=== PATIENT | female | born 1965 | race Caucasian/White ===

== ENCOUNTER 2019-02-22 22:05 | Emergency (ER) | payer MEDICARE ==
[~2019-02-22] VITALS: Ht 157.5 cm; Wt 81.8 kg
[2019-02-22] MEDS ORDERED: METO25XL PO (22:55)
[2019-02-22] MEDS ORDERED: METO-558 PO (22:55)
[2019-02-22] MEDS ORDERED: QUET100T PO (22:55)
[2019-02-22] MEDS ORDERED: CETI10TA59 PO (22:55)
[2019-02-22] MEDS ORDERED: TOPI100T37 PO (22:55)
[2019-02-22] MEDS ORDERED: OMEP20 PO (22:55)
[2019-02-22] MEDS ORDERED: TRAZ-252 PO (22:55)
[2019-02-22] MEDS ORDERED: METF-960 PO (22:55)
[2019-02-22] MEDS ORDERED: BUSP15 PO (22:55)
[2019-02-22] MEDS ORDERED: MAG HYDROX/AL HYDROX/SIMETH 30 ML SUSP UDCUP PO ONE (23:45)
[2019-02-22] MEDS ORDERED: FAMOTIDINE 20 MG TABLET PO ONE (23:45)
[2019-02-23 01:13] VITALS: BP 117/87
== END 2019-02-23 01:19 | disposition home or self-care (01) ==
LOC: EMS 22:07
DX: J02.9 Acute pharyngitis, unspecified (principal); G40.909 Epilepsy, unspecified, not intractable, without status epilepticus; F41.9 Anxiety disorder, unspecified; F17.290 Nicotine dependence, other tobacco product, uncomplicated; Z79.899 Other long term (current) drug therapy; Z91.041 Radiographic dye allergy status; Z88.5 Allergy status to narcotic agent
CPT/HCPCS: 87430; 99406

== ENCOUNTER 2019-04-04 04:18 | Emergency (ER) | payer MEDICARE, MEDICAID ==
[~2019-04-04] VITALS: Ht 157.5 cm; Wt 8.2 kg
[~2019-04-04 04:18] MED LIST: BUSP15 PO; CETI10TA59 PO; METF-960 PO; METO-558 PO; METO25XL PO; OMEP20 PO; QUET100T PO; TOPI100T37 PO; TRAZ-252 PO
[2019-04-04 04:39] LABS: GLUCOSE,POINT OF CARE 134 MG/DL (70-110)
[2019-04-04] MEDS ORDERED: DiphenhydrAMINE HCL 50 MG/ML VIAL IM ONE (06:15)
[2019-04-04] MEDS ORDERED: PredniSONE 20 MG TABLET PO ONE (06:15)
[2019-04-04 06:49] VITALS: BP 142/90
== END 2019-04-04 07:45 | disposition left against medical advice (07) ==
LOC: EMS 04:19
DX: R21 Rash and other nonspecific skin eruption (principal); R00.0 Tachycardia, unspecified; F41.9 Anxiety disorder, unspecified; F17.200 Nicotine dependence, unspecified, uncomplicated; Z90.710 Acquired absence of both cervix and uterus; Z88.8 Allergy status to other drugs, medicaments and biological substances; Z88.5 Allergy status to narcotic agent; Z79.84 Long term (current) use of oral hypoglycemic drugs
CPT/HCPCS: 82962; 93005; 96372; 99283; J1200; J7512

== ENCOUNTER 2020-12-30 19:02 | Emergency (ER) | payer MEDICARE, OTHER ==
[~2020-12-30] VITALS: Ht 157.5 cm; Wt 97.3 kg
[~2020-12-30 19:02] MED LIST changes: +ALLO100T2 PO; +ASCO500 PO; +ATOR40TA28 PO; +BUSP10TA23 PO; -BUSP15 PO; +CETI-450 PO; -CETI10TA59 PO; +FERR-82 PO; +LEVO-72 PO; -METF-960 PO; -METO-558 PO; -QUET100T PO; +SERT-162 PO; -TOPI100T37 PO; -TRAZ-252 PO; +TRAZ150T80 PO
[2020-12-30] MEDS ORDERED: LEVE500T20 PO (19:10)
[2020-12-30] MEDS ORDERED: ACETAMINOPHEN 1000 MG/ISO-OSM 100 ML IV ONE (20:00)
[2020-12-30] MEDS ORDERED: ONDANSETRON HCL 4 MG/2 ML VIAL IVP ONE (20:00)
[2020-12-30] MEDS ORDERED: SODIUM CHLORIDE 0.9% 1,000 ML IV ONE (20:00)
[2020-12-30 20:35] LABS: BASOPHILS % (AUTO) 0.2 % (0.0-2.0); EOSINOPHILS % (AUTO) 1.2 % (1.0-6.0); HEMATOCRIT 39.9 % (36-46); HEMOGLOBIN 13.4 g/dL (12.0-16.0); LYMPHOCYTES # (AUTO) 2.6 K/uL (1.0-4.8); LYMPHOCYTES % (AUTO) 29.3 % (22.0-44.0); MEAN CORPUSCULAR HEMOGLOBIN 29.6 pg (26.0-34.0); MEAN CORPUSCULAR HGB CONC 33.6 G/dL (31.0-37.0); MEAN CORPUSCULAR VOLUME 88 fL (80-100); MONOCYTES # (AUTO) 0.6 K/uL (0.1-1.0); MONOCYTES % (AUTO) 7.1 % (2.0-9.0); NEUTROPHILS # (AUTO) 5.6 K/uL (1.8-7.7); NEUTROPHILS % (AUTO) 62.2 % (40.0-70.0); PLATELET COUNT (AUTO) 281 K/uL (150-450); RED BLOOD CELL COUNT(AUTO) 4.53 MIL/uL (4.00-5.20); RED CELL DISTRIBUTION WIDTH 13.4 % (11.5-14.5)
[2020-12-30] MEDS ORDERED: CefTRIAXone 1 GM/DEXTROSE 50 ML IV ONE (20:45)
[2020-12-30 20:55] LABS: ANION GAP 7 mmol/L (8-16); CALCIUM, TOTAL 8.3 mg/dL (8.8-10.5); CARBON DIOXIDE 30 mmol/L (22-29); CHLORIDE 104 mmol/L (98-107); CREATININE 0.68 mg/dL (0.60-1.30); GLOMERULAR FILTR. RATE CALC > 60 mL/min (>60); GLUCOSE,RANDOM 88 mg/dL (70-110); POTASSIUM 3.5 mmol/L (3.5-5.1); SODIUM SERUM 141 mmol/L (136-145); UREA NITROGEN, BLOOD 15 mg/dL (7-18)
[2020-12-30 20:57] LABS: ALANINE AMINOTRANSFERASE 28 U/L (12-78); ALBUMIN 3.5 g/dL (3.4-5.0); ALKALINE PHOSPHATASE 121 U/L (46-116); ASPARTATE AMINOTRANSFERASE 18 U/L (15-37); BILIRUBIN,TOTAL 0.2 mg/dL (0.1-1.0); LIPASE 126 U/L (73-393); TOTAL PROTEIN, SERUM 7.6 g/dL (6.4-8.2)
[2020-12-30 20:59] LABS: APPEARANCE,URINE CLOUDY (CLEAR); BILIRUBIN,URINE NEGATIVE (NEGATIVE); GLUCOSE, URINE (UA) NEGATIVE (NEGATIVE); KETONES,URINE TRACE mg/dL (NEGATIVE); LEUKOCYTE ESTERASE ,URINE LARGE (NEGATIVE); NITRATE,URINE POSITIVE (NEGATIVE); OCCULT BLOOD,URINE TRACE (NEGATIVE); PROTEIN,URINE NEGATIVE (NEGATIVE)
[2020-12-30 21:02] LABS: BACTERIA,URINE Many /HPF (None Seen); SQUAMOUS EPITHELIAL CELL,UR Few /LPF (None Seen); WBC,URINE 26-50 /HPF (0-5); YEAST,URINE None Seen /HPF (None Seen)
[2020-12-30 21:03] LABS: AMORPHOUS SEDIMENT,UR None Seen /LPF (None Seen); CALCIUM OXALATE CRYSTALS,UR None Seen /LPF (None Seen); CALCIUM PHOSPHATE CRYSTALS,UR None Seen /LPF (None Seen); COARSE GRANULAR CASTS,URINE None Seen /LPF (None Seen); FINE GRANULAR CASTS,URINE None Seen /LPF (None Seen); HYALINE CASTS, URINE None Seen /LPF (None Seen); OTHER CASTS, URINE None Seen /LPF (None Seen); OTHER CRYSTALS,URINE None Seen /LPF (None Seen); STARCH,URINE None Seen /LPF (None Seen); TRIPLE PHOSPHATE CRYSTAL,UR None Seen /LPF (None Seen); URIC ACID CRYSTALS,URINE None Seen /LPF (None Seen)
[2020-12-30 22:09] VITALS: BP 133/85
== END 2020-12-30 22:43 | disposition home or self-care (01) ==
LOC: EMS 19:04
DX: N12 Tubulo-interstitial nephritis, not specified as acute or chronic (principal); F41.9 Anxiety disorder, unspecified; F31.9 Bipolar disorder, unspecified; J44.9 Chronic obstructive pulmonary disease, unspecified; I10 Essential (primary) hypertension; F17.200 Nicotine dependence, unspecified, uncomplicated; Z88.8 Allergy status to other drugs, medicaments and biological substances; Z88.6 Allergy status to analgesic agent; Z90.710 Acquired absence of both cervix and uterus
CPT/HCPCS: 36415; 80053; 81001; 83690; 85025; 87077; 87086; 87186; 96361; 96365; 96375; 99284; J0131; J0696; J2405; J7030; 96367

== ENCOUNTER 2021-02-24 13:40 | Inpatient (IN) | payer MEDICARE, OTHER ==
[~2021-02-24] VITALS: Ht 157.5 cm; Wt 99.5 kg
[~2021-02-24 13:40] MED LIST changes: -ALLO100T2 PO; -ATOR40TA28 PO; -CETI-450 PO; +LEVE750T4 PO; -LEVO-72 PO
[2021-02-24] MEDS ORDERED: HYDROCODONE/ACETAMINOPHEN 5-325 MG TABLET PO ONE (15:00)
[2021-02-24 15:33] LABS: APPEARANCE,URINE CLEAR (CLEAR); BILIRUBIN,URINE NEGATIVE (NEGATIVE); GLUCOSE, URINE (UA) NEGATIVE (NEGATIVE); KETONES,URINE NEGATIVE (NEGATIVE); LEUKOCYTE ESTERASE ,URINE NEGATIVE (NEGATIVE); NITRATE,URINE NEGATIVE (NEGATIVE); OCCULT BLOOD,URINE NEGATIVE (NEGATIVE); PROTEIN,URINE NEGATIVE (NEGATIVE); UROBILINOGEN,URINE 0.2 mg/dL (<=1.0)
[2021-02-24 15:40] LABS: BASOPHILS % (AUTO) 0.9 % (0.0-2.0); HEMATOCRIT 38.8 % (36-46); HEMOGLOBIN 13.1 g/dL (12.0-16.0); LYMPHOCYTES # (AUTO) 2.3 K/uL (1.0-4.8); LYMPHOCYTES % (AUTO) 20.3 % (22.0-44.0); MEAN CORPUSCULAR HEMOGLOBIN 29.4 pg (26.0-34.0); MEAN CORPUSCULAR HGB CONC 33.7 G/dL (31.0-37.0); MEAN CORPUSCULAR VOLUME 87 fL (80-100); MONOCYTES # (AUTO) 0.7 K/uL (0.1-1.0); MONOCYTES % (AUTO) 5.9 % (2.0-9.0); NEUTROPHILS % (AUTO) 71.9 % (40.0-70.0); PLATELET COUNT (AUTO) 293 K/uL (150-450); RED BLOOD CELL COUNT(AUTO) 4.45 MIL/uL (4.00-5.20); RED CELL DISTRIBUTION WIDTH 12.9 % (11.5-14.5)
[2021-02-24 15:52] LABS: ANION GAP 6 mmol/L (8-16); CALCIUM, TOTAL 8.8 mg/dL (8.8-10.5); CARBON DIOXIDE 31 mmol/L (22-29); CHLORIDE 106 mmol/L (98-107); CREATININE 0.76 mg/dL (0.60-1.30); GLOMERULAR FILTR. RATE CALC > 60 mL/min (>60); GLUCOSE,RANDOM 138 mg/dL (70-110); POTASSIUM 3.9 mmol/L (3.5-5.1); SODIUM SERUM 143 mmol/L (136-145); UREA NITROGEN, BLOOD 18 mg/dL (7-18)
[2021-02-24 15:58] LABS: ALANINE AMINOTRANSFERASE 18 U/L (12-78); ALBUMIN 3.1 g/dL (3.4-5.0); ALKALINE PHOSPHATASE 112 U/L (46-116); ASPARTATE AMINOTRANSFERASE 11 U/L (15-37); BILIRUBIN,TOTAL 0.2 mg/dL (0.1-1.0); LIPASE 143 U/L (73-393); TOTAL PROTEIN, SERUM 6.9 g/dL (6.4-8.2)
[2021-02-24 16:05] LABS: BACTERIA,URINE None Seen /HPF (None Seen); RBC,URINE None Seen /HPF (0-2); SQUAMOUS EPITHELIAL CELL,UR Rare /LPF (None Seen)
[2021-02-24 16:06] LABS: WBC,URINE 0-2 /HPF (0-5)
[2021-02-24 16:11] LABS: LACTIC ACID 2.5 mmol/L (0.4-2.0)
[2021-02-24] MEDS ORDERED: SODIUM CHLORIDE 0.9% 1,000 ML IV ONE (17:15)
[2021-02-24] MEDS ORDERED: AMPICILLIN SODIUM/SULBACTAM NA 1.5 GM/VIAL IM ONE (17:30)
[2021-02-24] MEDS ORDERED: AMPICILLIN SODIUM/SULBACTAM NA 1.5 GM/VIAL IV ONE (17:45)
[2021-02-24] MEDS ORDERED: AMPICILLIN SODIUM/SULBACTAM NA 3 GM in SODIUM CHLORIDE 0.9% 100 ML IV ONE (17:45)
[2021-02-24 19:25] LABS: COVID AG,FIA SOURCE NASOPHARYNGEAL
[2021-02-24] MEDS ORDERED: ONDANSETRON HCL 4 MG/2 ML VIAL IVP PRN (19:30)
[2021-02-24] MEDS ORDERED: ACETAMINOPHEN 325 MG TABLET PO PRN (19:30)
[2021-02-24] MEDS: RINGERS SOLUTION,LACTATED 1,000 ML IV SCH (20:40)
[2021-02-24] MEDS ORDERED: MORPHINE SULFATE 2 MG/ML SYRINGE IVP PRN (21:45)
[2021-02-24 22:08] VITALS: BP 122/77
[2021-02-24] MEDS: HEPARIN SODIUM,PORCINE 5,000 UNITS/ML VIAL SQ SCH (23:45)
[2021-02-25] MEDS: RINGERS SOLUTION,LACTATED 1,000 ML IV SCH (03:35)
[2021-02-25] MEDS ORDERED: AMPICILLIN SODIUM/SULBACTAM NA 1.5 GM in SODIUM CHLORIDE 0.9% 50 ML IV SCH (04:00)
[2021-02-25 04:45] VITALS: BP 134/67
[2021-02-25] MEDS ORDERED: MEPERIDINE-PF 25 MG/ML VIAL IVP PRN (06:45)
[2021-02-25] MEDS ORDERED: HYDROmorphone 2 MG/ML VIAL IVP PRN (06:45)
[2021-02-25] MEDS ORDERED: FentaNYL CITRATE PF 100 MCG/2 ML VIAL IVP PRN (06:45)
[2021-02-25] MEDS ORDERED: LevETIRAcetam 500 MG in DEXTROSE 5%-WATER 100 ML IV ONE (07:00)
[2021-02-25] MEDS ORDERED: SODIUM CHLORIDE 0.9% 0 ML ONE ×2 (07:01→07:34)
[2021-02-25] MEDS ORDERED: SODIUM CHLORIDE 0.9% 250 ML IV ONE (07:02)
[2021-02-25] MEDS ORDERED: RINGERS SOLUTION,LACTATED 1,000 ML IV ONE (07:17)
[2021-02-25] MEDS ORDERED: BUPIVACAINE 0.25%/EPI 1:200,000/PF 10 ML VIAL ONE (07:33)
[2021-02-25] MEDS ORDERED: HYDROmorphone 2 MG/ML VIAL ONE (09:08)
[2021-02-25 09:12] VITALS: BP 129/64
[2021-02-25] MEDS ORDERED: ACETAMINOPHEN 500 MG TABLET PO PRN (09:15)
[2021-02-25] MEDS ORDERED: FentaNYL CITRATE PF 100 MCG/2 ML VIAL ONE (09:23)
[2021-02-25 11:24] LABS: BASOPHILS % (AUTO) 0.2 % (0.0-2.0); EOSINOPHILS % (AUTO) 0.2 % (1.0-6.0); HEMATOCRIT 36.7 % (36-46); HEMOGLOBIN 12.4 g/dL (12.0-16.0); LYMPHOCYTES # (AUTO) 0.8 K/uL (1.0-4.8); LYMPHOCYTES % (AUTO) 5.8 % (22.0-44.0); MEAN CORPUSCULAR HEMOGLOBIN 29.5 pg (26.0-34.0); MEAN CORPUSCULAR HGB CONC 33.8 G/dL (31.0-37.0); MEAN CORPUSCULAR VOLUME 87 fL (80-100); MONOCYTES # (AUTO) 0.1 K/uL (0.1-1.0); MONOCYTES % (AUTO) 0.9 % (2.0-9.0); NEUTROPHILS # (AUTO) 13.6 K/uL (1.8-7.7); PLATELET COUNT (AUTO) 278 K/uL (150-450); RED CELL DISTRIBUTION WIDTH 12.8 % (11.5-14.5)
[2021-02-25 11:27] LABS: NEUTROPHILS % (AUTO) 92.9 % (40.0-70.0)
[2021-02-25] MEDS: SERTRALINE HCL 100 MG TABLET PO SCH (11:37)
[2021-02-25] MEDS: BusPIRone HCL 10 MG TABLET PO SCH ×3 (11:37→20:03)
[2021-02-25] MEDS: OMEPRAZOLE 20 MG CAPSULE PO SCH (11:38)
[2021-02-25] MEDS: METOPROLOL SUCCINATE 25 MG ER TABLET PO SCH ×2 (11:38→21:00)
[2021-02-25] MEDS: FERROUS SULFATE 325 MG EC TABLET PO SCH (11:38)
[2021-02-25] MEDS: ASCORBIC ACID 500 MG TABLET PO SCH (11:38)
[2021-02-25 11:39] LABS: ANION GAP 7 mmol/L (8-16); CALCIUM, TOTAL 8.6 mg/dL (8.8-10.5); CARBON DIOXIDE 28 mmol/L (22-29); CHLORIDE 107 mmol/L (98-107); CREATININE 0.65 mg/dL (0.60-1.30); GLOMERULAR FILTR. RATE CALC > 60 mL/min (>60); GLUCOSE,RANDOM 148 mg/dL (70-110); POTASSIUM 4.4 mmol/L (3.5-5.1); SODIUM SERUM 142 mmol/L (136-145); UREA NITROGEN, BLOOD 11 mg/dL (7-18)
[2021-02-25] MEDS: HEPARIN SODIUM,PORCINE 5,000 UNITS/ML VIAL SQ SCH ×2 (11:39→16:00)
[2021-02-25 11:43] LABS: ALANINE AMINOTRANSFERASE 37 U/L (12-78); ALKALINE PHOSPHATASE 116 U/L (46-116); ASPARTATE AMINOTRANSFERASE 55 U/L (15-37); BILIRUBIN,TOTAL 0.5 mg/dL (0.1-1.0); HEMOGLOBIN A1C 5.9 % (3.8-5.6); TOTAL PROTEIN, SERUM 6.7 g/dL (6.4-8.2)
[2021-02-25] MEDS ORDERED: 0.9% SODIUM CHLORIDE 10 ML VIAL IVP ONE (12:00)
[2021-02-25] MEDS ORDERED: FentaNYL CITRATE PF 100 MCG/2 ML VIAL IVP ONE (12:00)
[2021-02-25] MEDS ORDERED: ONDANSETRON HCL 4 MG/2 ML VIAL IVP ONE (12:00)
[2021-02-25] MEDS ORDERED: KETOROLAC TROMETHAMINE 60 MG/2 ML VIAL IM ONE (12:00)
[2021-02-25] MEDS ORDERED: METOPROLOL TARTRATE 5 MG/5 ML VIAL IVP ONE (12:00)
[2021-02-25] MEDS ORDERED: MIDAZOLAM HCL 2 MG/2 ML VIAL IVP ONE (12:00)
[2021-02-25] MEDS ORDERED: DEXAMETHASONE SOD PHOS 4 MG/ML VIAL IVP ONE (12:00)
[2021-02-25] MEDS ORDERED: ROCURONIUM BROMIDE 10 MG/ML 5 ML VIAL IVP ONE (12:00)
[2021-02-25] MEDS ORDERED: LIDOCAINE/PF 2% 5 ML VIAL IM ONE (12:00)
[2021-02-25] MEDS ORDERED: PROPOFOL 1% 20 ML VIAL IVP ONE (12:00)
[2021-02-25] MEDS: OxyCODONE HCL/ACETAMINOPHEN 5-325 MG TABLET PO PRN ×2 (12:09→19:57)
[2021-02-25] MEDS: OXYGEN THERAPY IH SCH ×2 (12:26→20:00)
[2021-02-25 16:00] VITALS: BP 109/67
[2021-02-25 19:50] VITALS: BP 104/58
[2021-02-25] MEDS: LevETIRAcetam 250 MG TABLET PO SCH (20:02)
[2021-02-25] MEDS ORDERED: TraZODone HCL 150 MG TABLET PO SCH (21:00)
[2021-02-26] MEDS: HEPARIN SODIUM,PORCINE 5,000 UNITS/ML VIAL SQ SCH ×2 (00:25→08:18)
[2021-02-26 00:30] VITALS: BP 92/57
[2021-02-26] MEDS: OxyCODONE HCL/ACETAMINOPHEN 5-325 MG TABLET PO PRN ×3 (04:23→13:34)
[2021-02-26 04:39] VITALS: BP 113/64
[2021-02-26] MEDS: OXYGEN THERAPY IH SCH (08:00)
[2021-02-26] MEDS: OMEPRAZOLE 20 MG CAPSULE PO SCH (08:18)
[2021-02-26] MEDS: FERROUS SULFATE 325 MG EC TABLET PO SCH (08:18)
[2021-02-26] MEDS: BusPIRone HCL 10 MG TABLET PO SCH (08:19)
[2021-02-26] MEDS: SERTRALINE HCL 100 MG TABLET PO SCH (08:19)
[2021-02-26] MEDS: ASCORBIC ACID 500 MG TABLET PO SCH (08:20)
[2021-02-26] MEDS: LevETIRAcetam 250 MG TABLET PO SCH (08:20)
[2021-02-26] MEDS: METOPROLOL SUCCINATE 25 MG ER TABLET PO SCH (09:00)
[2021-02-26 09:10] VITALS: BP 114/70
[2021-02-26 12:26] VITALS: BP 115/48
== END 2021-02-26 15:50 | disposition home or self-care (01) | DRG 418 ==
LOC: EMS 13:40 → 5S 20:26
PROVIDERS: ADMIT Internal Medicine; ATTEND Internal Medicine
PROC: 0FT44ZZ Resection of Gallbladder, Percutaneous Endoscopic Approach (ICD-10-PCS; principal; 2021-02-25 08:00)
DX: K80.12 Calculus of gallbladder with acute and chronic cholecystitis without obstruction (principal); Z68.41 Body mass index [BMI] 40.0-44.9, adult; E66.01 Morbid (severe) obesity due to excess calories; F31.9 Bipolar disorder, unspecified; F41.1 Generalized anxiety disorder; G40.909 Epilepsy, unspecified, not intractable, without status epilepticus; I10 Essential (primary) hypertension; J44.9 Chronic obstructive pulmonary disease, unspecified; E11.65 Type 2 diabetes mellitus with hyperglycemia; F41.9 Anxiety disorder, unspecified; Z80.7 Family history of other malignant neoplasms of lymphoid, hematopoietic and related tissues; Z85.41 Personal history of malignant neoplasm of cervix uteri; Z87.891 Personal history of nicotine dependence; Z90.710 Acquired absence of both cervix and uterus; Z91.041 Radiographic dye allergy status
CPT/HCPCS: 76700; 80053; 81001; 83036; 83605; 83690; 85025; 88304; 99285; J0295; J0690; J0712; J1100; J1170; J1644; J1885; J2250; J2270; J2405; J2704; J3010; J3490; J7030; J7050; J7060; J7120

== ENCOUNTER 2021-03-30 09:36 | Emergency (ER) | payer MEDICARE, OTHER ==
[~2021-03-30] VITALS: Ht 157.5 cm; Wt 95.9 kg
[~2021-03-30 09:36] MED LIST changes: -ASCO500 PO; -FERR-82 PO; +HYDR-4723 PO; -METO25XL PO; -TRAZ150T80 PO
[2021-03-30] MEDS ORDERED: ONDANSETRON HCL 4 MG/2 ML VIAL IVP ONE (10:15)
[2021-03-30] MEDS ORDERED: FAMOTIDINE 10 MG/ML 2 ML VIAL IVP ONE (10:15)
[2021-03-30] MEDS ORDERED: MAG HYDROX/AL HYDROX/SIMETH 30 ML SUSP UDCUP PO ONE (10:15)
[2021-03-30] MEDS ORDERED: KETOROLAC TROMETHAMINE 30 MG/ML VIAL IVP ONE (10:15)
[2021-03-30] MEDS ORDERED: SODIUM CHLORIDE 0.9% 1,000 ML IV ONE (10:15)
[2021-03-30] MEDS ORDERED: IOHEXOL 350 MG/ML 150 ML VIAL ONE (10:48)
[2021-03-30] MEDS ORDERED: SODIUM CHLORIDE 0.9% 100 ML ONE (10:48)
[2021-03-30 10:57] LABS: BASOPHILS % (AUTO) 0.9 % (0.0-2.0); EOSINOPHILS % (AUTO) 0.3 % (1.0-6.0); HEMATOCRIT 40.4 % (36-46); HEMOGLOBIN 13.8 g/dL (12.0-16.0); LYMPHOCYTES # (AUTO) 1.3 K/uL (1.0-4.8); LYMPHOCYTES % (AUTO) 31.3 % (22.0-44.0); MEAN CORPUSCULAR HGB CONC 34.2 G/dL (31.0-37.0); MEAN CORPUSCULAR VOLUME 88 fL (80-100); MONOCYTES # (AUTO) 0.6 K/uL (0.1-1.0); MONOCYTES % (AUTO) 13.2 % (2.0-9.0); NEUTROPHILS # (AUTO) 2.3 K/uL (1.8-7.7); NEUTROPHILS % (AUTO) 54.3 % (40.0-70.0); PLATELET COUNT (AUTO) 232 K/uL (150-450); RED CELL DISTRIBUTION WIDTH 13.2 % (11.5-14.5)
[2021-03-30 10:59] LABS: ANION GAP 10 mmol/L (8-16); CALCIUM, TOTAL 9.2 mg/dL (8.8-10.5); CARBON DIOXIDE 24 mmol/L (22-29); CHLORIDE 104 mmol/L (98-107); CREATININE 0.79 mg/dL (0.60-1.30); GLOMERULAR FILTR. RATE CALC > 60 mL/min (>60); GLUCOSE,RANDOM 93 mg/dL (70-110); POTASSIUM 3.5 mmol/L (3.5-5.1); SODIUM SERUM 138 mmol/L (136-145); UREA NITROGEN, BLOOD 11 mg/dL (7-18)
[2021-03-30 11:02] LABS: COVID AG,FIA SOURCE NASOPHARYNGEAL
[2021-03-30 11:10] LABS: ALANINE AMINOTRANSFERASE 83 U/L (12-78); ALBUMIN 3.4 g/dL (3.4-5.0); ALKALINE PHOSPHATASE 184 U/L (46-116); ASPARTATE AMINOTRANSFERASE 67 U/L (15-37); BILIRUBIN,TOTAL 0.2 mg/dL (0.1-1.0); HCG,QUANTITATIVE 8 mIU/mL (0-6); LIPASE 64 U/L (73-393); TOTAL PROTEIN, SERUM 8.1 g/dL (6.4-8.2)
[2021-03-30 11:11] LABS: LACTIC ACID 2.1 mmol/L (0.4-2.0)
[2021-03-30] MEDS ORDERED: DiphenhydrAMINE HCL 50 MG/ML VIAL IVP ONE (12:15)
[2021-03-30] MEDS ORDERED: HYDROCORTISONE SOD SUCC 100 MG/2 ML VIAL IVP ONE (12:15)
[2021-03-30 16:50] LABS: APPEARANCE,URINE CLEAR (CLEAR); BILIRUBIN,URINE NEGATIVE (NEGATIVE); GLUCOSE, URINE (UA) NEGATIVE (NEGATIVE); KETONES,URINE NEGATIVE (NEGATIVE); LEUKOCYTE ESTERASE ,URINE NEGATIVE (NEGATIVE); NITRATE,URINE NEGATIVE (NEGATIVE); OCCULT BLOOD,URINE NEGATIVE (NEGATIVE); PH,URINE 5.5 (5.0-8.0); PROTEIN,URINE NEGATIVE (NEGATIVE); UROBILINOGEN,URINE 0.2 mg/dL (<=1.0)
[2021-03-30 17:44] VITALS: BP 143/77
== END 2021-03-30 18:27 | disposition home or self-care (01) ==
LOC: EMS 09:40
DX: U07.1 COVID-19 (principal); K52.9 Noninfective gastroenteritis and colitis, unspecified; F32.9 Major depressive disorder, single episode, unspecified; E78.00 Pure hypercholesterolemia, unspecified; I10 Essential (primary) hypertension; Z90.710 Acquired absence of both cervix and uterus
CPT/HCPCS: 36415; 74177; 80053; 81003; 82271; 83605; 83690; 84702; 85025; 87426; 96361; 96374; 96375; 99285; J1200; J1720; J1885; J2405; J3490; J7030; J7050; Q9967

== ENCOUNTER 2021-08-07 19:22 | Emergency (ER) | payer MEDICARE, OTHER ==
[~2021-08-07] VITALS: Ht 175.3 cm; Wt 86.4 kg
[2021-08-07] MEDS ORDERED: SODIUM CHLORIDE 0.9% 500 ML IV ONE (20:00)
[2021-08-07 20:13] LABS: BASOPHILS % (AUTO) 1.5 % (0.0-2.0); EOSINOPHILS % (AUTO) 1.2 % (1.0-6.0); HEMATOCRIT 36.8 % (36-46); HEMOGLOBIN 12.6 g/dL (12.0-16.0); LYMPHOCYTES # (AUTO) 2.4 K/uL (1.0-4.8); LYMPHOCYTES % (AUTO) 23.5 % (22.0-44.0); MEAN CORPUSCULAR HEMOGLOBIN 29.6 pg (26.0-34.0); MEAN CORPUSCULAR HGB CONC 34.1 G/dL (31.0-37.0); MEAN CORPUSCULAR VOLUME 87 fL (80-100); MONOCYTES # (AUTO) 0.8 K/uL (0.1-1.0); MONOCYTES % (AUTO) 7.9 % (2.0-9.0); NEUTROPHILS # (AUTO) 6.8 K/uL (1.8-7.7); NEUTROPHILS % (AUTO) 65.9 % (40.0-70.0); PLATELET COUNT (AUTO) 249 K/uL (150-450); RED BLOOD CELL COUNT(AUTO) 4.25 MIL/uL (4.00-5.20); RED CELL DISTRIBUTION WIDTH 12.7 % (11.5-14.5)
[2021-08-07 20:17] LABS: ANION GAP 7 mmol/L (8-16); CALCIUM, TOTAL 8.6 mg/dL (8.8-10.5); CARBON DIOXIDE 29 mmol/L (22-29); CHLORIDE 105 mmol/L (98-107); CREATININE 0.71 mg/dL (0.60-1.30); GLOMERULAR FILTR. RATE CALC > 60 mL/min (>60); GLUCOSE,RANDOM 104 mg/dL (70-110); POTASSIUM 3.6 mmol/L (3.5-5.1); SODIUM SERUM 141 mmol/L (136-145); UREA NITROGEN, BLOOD 12 mg/dL (7-18)
[2021-08-07 20:22] LABS: ALANINE AMINOTRANSFERASE 24 U/L (12-78); ALKALINE PHOSPHATASE 116 U/L (46-116); ASPARTATE AMINOTRANSFERASE 18 U/L (15-37); BILIRUBIN,TOTAL 0.2 mg/dL (0.1-1.0); TOTAL PROTEIN, SERUM 7.1 g/dL (6.4-8.2)
[2021-08-07] MEDS ORDERED: DiphenhydrAMINE HCL 50 MG/ML VIAL IVP ONE (21:15)
[2021-08-07] MEDS ORDERED: KETOROLAC TROMETHAMINE 30 MG/ML VIAL IVP ONE (21:15)
[2021-08-07 22:36] VITALS: BP 118/62
== END 2021-08-07 22:38 | disposition home or self-care (01) ==
LOC: EMS 19:25
DX: G40.909 Epilepsy, unspecified, not intractable, without status epilepticus (principal); G43.909 Migraine, unspecified, not intractable, without status migrainosus; F32.A Depression, unspecified; E78.00 Pure hypercholesterolemia, unspecified; I10 Essential (primary) hypertension; Z86.69 Personal history of other diseases of the nervous system and sense organs; Z87.898 Personal history of other specified conditions; Z90.49 Acquired absence of other specified parts of digestive tract; Z90.710 Acquired absence of both cervix and uterus; Z90.10 Acquired absence of unspecified breast and nipple; Z98.890 Other specified postprocedural states; Z88.8 Allergy status to other drugs, medicaments and biological substances
CPT/HCPCS: 36415; 70450; 80053; 82962; 85025; 96361; 96374; 96375; 99284; J1200; J1885

== ENCOUNTER 2021-09-14 06:47 | Day surgery (SDC) | payer MEDICARE, OTHER ==
[2021-09-13 10:45] LABS: COVID AG,FIA SOURCE NASOPHARYNGEAL
[2021-09-13 11:23] LABS: EOSINOPHILS % (AUTO) 1.9 % (1.0-6.0); HEMATOCRIT 37.7 % (36-46); HEMOGLOBIN 12.8 g/dL (12.0-16.0); LYMPHOCYTES % (AUTO) 21.4 % (22.0-44.0); MEAN CORPUSCULAR HEMOGLOBIN 29.4 pg (26.0-34.0); MEAN CORPUSCULAR HGB CONC 33.8 G/dL (31.0-37.0); MEAN CORPUSCULAR VOLUME 87 fL (80-100); MONOCYTES # (AUTO) 0.6 K/uL (0.1-1.0); MONOCYTES % (AUTO) 6.2 % (2.0-9.0); NEUTROPHILS # (AUTO) 6.6 K/uL (1.8-7.7); NEUTROPHILS % (AUTO) 69.5 % (40.0-70.0); PLATELET COUNT (AUTO) 265 K/uL (150-450); RED BLOOD CELL COUNT(AUTO) 4.34 MIL/uL (4.00-5.20); RED CELL DISTRIBUTION WIDTH 12.6 % (11.5-14.5)
[2021-09-13 11:33] LABS: PROTHROMBIN TIME 10.7 SEC (9.4-11.6)
[2021-09-13 11:40] LABS: ANION GAP 9 mmol/L (8-16); CALCIUM, TOTAL 8.7 mg/dL (8.8-10.5); CARBON DIOXIDE 28 mmol/L (22-29); CHLORIDE 104 mmol/L (98-107); CREATININE 0.63 mg/dL (0.60-1.30); GLUCOSE,RANDOM 92 mg/dL (70-110); POTASSIUM 4.2 mmol/L (3.5-5.1); SODIUM SERUM 141 mmol/L (136-145); UREA NITROGEN, BLOOD 10 mg/dL (7-18)
[2021-09-13 11:41] LABS: GLOMERULAR FILTR. RATE CALC > 60 mL/min (>60)
[2021-09-13 11:45] LABS: ALANINE AMINOTRANSFERASE 22 U/L (12-78); ALBUMIN 3.1 g/dL (3.4-5.0); ALKALINE PHOSPHATASE 108 U/L (46-116); ASPARTATE AMINOTRANSFERASE 20 U/L (15-37); BILIRUBIN,TOTAL 0.4 mg/dL (0.1-1.0); TOTAL PROTEIN, SERUM 7.3 g/dL (6.4-8.2)
[~2021-09-14] VITALS: Ht 160 cm; Wt 97.7 kg
[~2021-09-14 06:47] MED LIST changes: +ASCO500 PO; +FERR325T27 PO; -HYDR-4723 PO; +METO25 PO; +RINGERS SOLUTION,LACTATED 1,000 ML IV ONE; +TRAZ150T80 PO
[2021-09-14] MEDS ORDERED: LIDOCAINE/PF 2% 5 ML VIAL IM ONE (06:48)
[2021-09-14] MEDS ORDERED: DEXAMETHASONE SOD PHOS 4 MG/ML VIAL IVP ONE (06:48)
[2021-09-14] MEDS ORDERED: PROPOFOL 1% 20 ML VIAL IVP ONE (06:48)
[2021-09-14] MEDS ORDERED: FentaNYL CITRATE PF 100 MCG/2 ML VIAL IVP ONE (06:48)
[2021-09-14] MEDS ORDERED: ONDANSETRON HCL 4 MG/2 ML VIAL IVP ONE (06:48)
[2021-09-14] MEDS ORDERED: MIDAZOLAM HCL 2 MG/2 ML VIAL IVP ONE (06:48)
[2021-09-14] MEDS ORDERED: RINGERS SOLUTION,LACTATED 1,000 ML IV ONE (07:00)
[2021-09-14] MEDS ORDERED: BUPIVACAINE HCL/PF 0.5% 30 ML VIAL ONE (08:01)
[2021-09-14] MEDS ORDERED: CHLORHEXIDINE GLUCONATE 4% 118 ML TOPICAL LIQUID TP ONE (09:56)
== END 2021-09-14 11:30 | disposition home or self-care (01) ==
LOC: SURGERY 06:47
PROVIDERS: ATTEND Surgery
DX: D17.79 Benign lipomatous neoplasm of other sites (principal); G40.909 Epilepsy, unspecified, not intractable, without status epilepticus; F32.9 Major depressive disorder, single episode, unspecified; G89.29 Other chronic pain; Z79.899 Other long term (current) drug therapy; Z98.890 Other specified postprocedural states; Z79.01 Long term (current) use of anticoagulants; Z91.041 Radiographic dye allergy status; I10 Essential (primary) hypertension; D64.9 Anemia, unspecified; E78.00 Pure hypercholesterolemia, unspecified; K21.9 Gastro-esophageal reflux disease without esophagitis; Z90.49 Acquired absence of other specified parts of digestive tract
CPT/HCPCS: 27041; 36415; 80053; 85025; 85610; 85730; 87426; 88304; 93005; C9803; J0690; J1100; J2250; J2405; J2704; J3010; J3490 ×2; J7120

== ENCOUNTER 2021-09-20 10:49 | Inpatient (IN) | payer MEDICARE, OTHER ==
[~2021-09-20] VITALS: Ht 160 cm; Wt 113.0 kg
[~2021-09-20 10:49] MED LIST changes: -RINGERS SOLUTION,LACTATED 1,000 ML IV ONE
[2021-09-20] MEDS ORDERED: SODIUM CHLORIDE 0.9% 2,000 ML IV ONE (11:15)
[2021-09-20 11:35] LABS: COVID AG,FIA SOURCE NASAL SWAB
[2021-09-20 11:37] LABS: BASOPHILS % (AUTO) 0.1 % (0.0-2.0); EOSINOPHILS % (AUTO) 1.1 % (1.0-6.0); HEMOGLOBIN 13.1 g/dL (12.0-16.0); MEAN CORPUSCULAR HEMOGLOBIN 29.4 pg (26.0-34.0); MEAN CORPUSCULAR HGB CONC 33.5 G/dL (31.0-37.0); MEAN CORPUSCULAR VOLUME 88 fL (80-100); MONOCYTES # (AUTO) 0.9 K/uL (0.1-1.0); NEUTROPHILS # (AUTO) 21.6 K/uL (1.8-7.7); PLATELET COUNT (AUTO) 248 K/uL (150-450); RED BLOOD CELL COUNT(AUTO) 4.45 MIL/uL (4.00-5.20)
[2021-09-20 11:38] LABS: NEUTROPHILS % (AUTO) 90.8 % (40.0-70.0)
[2021-09-20 11:45] LABS: ANION GAP 8 mmol/L (8-16); CALCIUM, TOTAL 8.6 mg/dL (8.8-10.5); CARBON DIOXIDE 26 mmol/L (22-29); CHLORIDE 103 mmol/L (98-107); CREATININE 0.81 mg/dL (0.60-1.30); GLUCOSE,RANDOM 153 mg/dL (70-110); POTASSIUM 3.9 mmol/L (3.5-5.1); SODIUM SERUM 137 mmol/L (136-145); UREA NITROGEN, BLOOD 12 mg/dL (7-18)
[2021-09-20 11:46] LABS: GLOMERULAR FILTR. RATE CALC > 60 mL/min (>60)
[2021-09-20 11:53] LABS: ALANINE AMINOTRANSFERASE 21 U/L (12-78); ALBUMIN 3.1 g/dL (3.4-5.0); ALKALINE PHOSPHATASE 117 U/L (46-116); ASPARTATE AMINOTRANSFERASE 20 U/L (15-37); BILIRUBIN,TOTAL 0.5 mg/dL (0.1-1.0); LIPASE 77 U/L (73-393); TOTAL PROTEIN, SERUM 7.4 g/dL (6.4-8.2)
[2021-09-20 11:55] LABS: INFLUENZA TYPE A NEGATIVE FOR TYPE A (NEGATIVE); INFLUENZA TYPE B NEGATIVE FOR TYPE B (NEGATIVE)
[2021-09-20] MEDS ORDERED: PIPERACILLIN/TAZO 3.375 GM/D5W 50 ML IV SCH (12:00)
[2021-09-20 12:07] LABS: LACTIC ACID 2.3 mmol/L (0.4-2.0)
[2021-09-20] MEDS ORDERED: HYDROmorphone 2 MG/ML VIAL IVP ONE (12:15)
[2021-09-20] MEDS ORDERED: BARIUM SULFATE 0.1% SUSPENSION 450 ML BOTTLE PO ONE (12:15)
[2021-09-20] MEDS ORDERED: SODIUM CHLORIDE 0.9% 1,000 ML IV ONE (12:15)
[2021-09-20] MEDS ORDERED: ONDANSETRON HCL 4 MG/2 ML VIAL IVP ONE (12:15)
[2021-09-20] MEDS ORDERED: ACETAMINOPHEN 500 MG TABLET PO ONE (12:15)
[2021-09-20] MEDS ORDERED: SODIUM CHLORIDE 0.9% 100 ML ONE (12:35)
[2021-09-20] MEDS ORDERED: IOHEXOL 350 MG/ML 150 ML VIAL ONE (12:35)
[2021-09-20] MEDS ORDERED: VANCOMYCIN HCL 1.5 GM in DEXTROSE 5%-WATER 250 ML IV ONE (13:00)
[2021-09-20 13:07] LABS: APPEARANCE,URINE CLEAR (CLEAR); BILIRUBIN,URINE NEGATIVE (NEGATIVE); GLUCOSE, URINE (UA) NEGATIVE (NEGATIVE); KETONES,URINE NEGATIVE (NEGATIVE); LEUKOCYTE ESTERASE ,URINE NEGATIVE (NEGATIVE); NITRATE,URINE NEGATIVE (NEGATIVE); OCCULT BLOOD,URINE NEGATIVE (NEGATIVE); PH,URINE 5.5 (5.0-8.0); PROTEIN,URINE NEGATIVE (NEGATIVE); SPECIFIC GRAVITIY, URINE 1.022 (1.003-1.030); UROBILINOGEN,URINE <=1.0 mg/dL (<=1.0)
[2021-09-20 13:11] LABS: BACTERIA,URINE None Seen /HPF (None Seen); RBC,URINE None Seen /HPF (0-2); WBC,URINE None Seen /HPF (0-5)
[2021-09-20] MEDS ORDERED: MethylPREDNISolone SOD SUCC 125 MG/2 ML VIAL IVP ONE (13:15)
[2021-09-20] MEDS ORDERED: DiphenhydrAMINE HCL 50 MG/ML VIAL IVP ONE (13:15)
[2021-09-20 15:23] VITALS: BP 98/50
[2021-09-20] MEDS ORDERED: ATOR40TA28 PO (16:15)
[2021-09-20] MEDS ORDERED: IPRATROPIUM BROMIDE 0.5 MG/2.5 ML NEB SOLUTION NEB PRN (16:30)
[2021-09-20] MEDS ORDERED: ONDANSETRON HCL 4 MG/2 ML VIAL IVP PRN (16:30)
[2021-09-20] MEDS ORDERED: TraZODone HCL 100 MG TABLET PO PRN (16:30)
[2021-09-20] MEDS: OxyCODONE HCL/ACETAMINOPHEN 5-325 MG TABLET PO PRN ×2 (17:13→21:06)
[2021-09-20] MEDS: SODIUM CHLORIDE 0.9% 1,000 ML IV SCH (17:15)
[2021-09-20] MEDS: PIPERACILLIN/TAZO 3.375 GM/D5W 50 ML IV SCH (18:21)
[2021-09-20 20:25] VITALS: BP 99/60
[2021-09-20] MEDS: DOCUSATE SODIUM 100 MG CAPSULE PO SCH (21:00)
[2021-09-20] MEDS: BusPIRone HCL 10 MG TABLET PO SCH (21:03)
[2021-09-20] MEDS: VANCOMYCIN HCL 1 GM in DEXTROSE 5%-WATER 250 ML IV SCH (22:46)
[2021-09-21] MEDS: SODIUM CHLORIDE 0.9% 1,000 ML IV SCH ×2 (00:30→08:29)
[2021-09-21] MEDS: PIPERACILLIN/TAZO 3.375 GM/D5W 50 ML IV SCH ×5 (00:57→23:21)
[2021-09-21] MEDS: HEPARIN SODIUM,PORCINE 5,000 UNITS/ML VIAL SQ SCH ×4 (00:57→23:26)
[2021-09-21] MEDS: OxyCODONE HCL/ACETAMINOPHEN 5-325 MG TABLET PO PRN ×4 (03:57→20:08)
[2021-09-21 04:30] VITALS: BP 107/74
[2021-09-21 05:34] LABS: BASOPHILS % (AUTO) 0.2 % (0.0-2.0); EOSINOPHILS % (AUTO) 0 % (1.0-6.0); HEMATOCRIT 34.2 % (36-46); HEMOGLOBIN 11.4 g/dL (12.0-16.0); LYMPHOCYTES # (AUTO) 1.3 K/uL (1.0-4.8); LYMPHOCYTES % (AUTO) 5.5 % (22.0-44.0); MEAN CORPUSCULAR HGB CONC 33.4 G/dL (31.0-37.0); MEAN CORPUSCULAR VOLUME 87 fL (80-100); MONOCYTES # (AUTO) 0.6 K/uL (0.1-1.0); MONOCYTES % (AUTO) 2.3 % (2.0-9.0); NEUTROPHILS # (AUTO) 22.1 K/uL (1.8-7.7); PLATELET COUNT (AUTO) 249 K/uL (150-450); RED BLOOD CELL COUNT(AUTO) 3.94 MIL/uL (4.00-5.20); RED CELL DISTRIBUTION WIDTH 13.2 % (11.5-14.5)
[2021-09-21 05:44] LABS: ANION GAP 9 mmol/L (8-16); CARBON DIOXIDE 26 mmol/L (22-29); CHLORIDE 105 mmol/L (98-107); CREATININE 0.65 mg/dL (0.60-1.30); GLUCOSE,RANDOM 140 mg/dL (70-110); POTASSIUM 3.9 mmol/L (3.5-5.1); SODIUM SERUM 140 mmol/L (136-145); UREA NITROGEN, BLOOD 9 mg/dL (7-18)
[2021-09-21 05:45] LABS: GLOMERULAR FILTR. RATE CALC > 60 mL/min (>60)
[2021-09-21 08:11] VITALS: BP 103/59
[2021-09-21] MEDS: BusPIRone HCL 10 MG TABLET PO SCH ×3 (08:24→20:05)
[2021-09-21] MEDS: SERTRALINE HCL 100 MG TABLET PO SCH (08:24)
[2021-09-21] MEDS: DOCUSATE SODIUM 100 MG CAPSULE PO SCH ×2 (08:24→20:06)
[2021-09-21] MEDS: FAMOTIDINE 20 MG TABLET PO SCH (08:24)
[2021-09-21] MEDS: VANCOMYCIN HCL 1 GM in DEXTROSE 5%-WATER 250 ML IV SCH ×2 (09:12→15:38)
[2021-09-21] MEDS: LevETIRAcetam 250 MG TABLET PO SCH ×2 (11:16→20:05)
[2021-09-21 16:12] VITALS: BP 115/72
[2021-09-21 21:18] VITALS: BP 117/75
[2021-09-21] MEDS ORDERED: SODIUM CHLORIDE 0.9% 500 ML IV ONE (23:15)
[2021-09-22] MEDS: VANCOMYCIN HCL 1 GM in DEXTROSE 5%-WATER 250 ML IV SCH ×3 (00:25→15:59)
[2021-09-22] MEDS: OxyCODONE HCL/ACETAMINOPHEN 5-325 MG TABLET PO PRN ×3 (02:40→15:58)
[2021-09-22 04:07] VITALS: BP 125/76
[2021-09-22] MEDS: PIPERACILLIN/TAZO 3.375 GM/D5W 50 ML IV SCH ×4 (05:31→23:31)
[2021-09-22 06:23] LABS: BASOPHILS % (AUTO) 0.4 % (0.0-2.0); EOSINOPHILS % (AUTO) 2.8 % (1.0-6.0); HEMATOCRIT 31.2 % (36-46); HEMOGLOBIN 10.4 g/dL (12.0-16.0); LYMPHOCYTES % (AUTO) 24.5 % (22.0-44.0); MEAN CORPUSCULAR HEMOGLOBIN 29.2 pg (26.0-34.0); MEAN CORPUSCULAR HGB CONC 33.3 G/dL (31.0-37.0); MEAN CORPUSCULAR VOLUME 88 fL (80-100); MONOCYTES # (AUTO) 1.1 K/uL (0.1-1.0); MONOCYTES % (AUTO) 6.6 % (2.0-9.0); NEUTROPHILS # (AUTO) 10.6 K/uL (1.8-7.7); NEUTROPHILS % (AUTO) 65.7 % (40.0-70.0); PLATELET COUNT (AUTO) 227 K/uL (150-450); RED BLOOD CELL COUNT(AUTO) 3.55 MIL/uL (4.00-5.20); RED CELL DISTRIBUTION WIDTH 13.2 % (11.5-14.5)
[2021-09-22 06:39] LABS: ANION GAP 8 mmol/L (8-16); CARBON DIOXIDE 28 mmol/L (22-29); CHLORIDE 106 mmol/L (98-107); CREATININE 0.65 mg/dL (0.60-1.30); GLUCOSE,RANDOM 104 mg/dL (70-110); POTASSIUM 3.2 mmol/L (3.5-5.1); SODIUM SERUM 142 mmol/L (136-145); UREA NITROGEN, BLOOD 11 mg/dL (7-18); VANCOMYCIN,RANDOM 20.9 mcg/mL (25.0-50.0)
[2021-09-22 06:56] LABS: GLOMERULAR FILTR. RATE CALC > 60 mL/min (>60)
[2021-09-22] MEDS: HEPARIN SODIUM,PORCINE 5,000 UNITS/ML VIAL SQ SCH (08:23)
[2021-09-22] MEDS: BusPIRone HCL 10 MG TABLET PO SCH ×3 (08:23→20:41)
[2021-09-22] MEDS: DOCUSATE SODIUM 100 MG CAPSULE PO SCH ×2 (08:24→20:43)
[2021-09-22] MEDS: SERTRALINE HCL 100 MG TABLET PO SCH (08:24)
[2021-09-22] MEDS: FAMOTIDINE 20 MG TABLET PO SCH (08:24)
[2021-09-22] MEDS: LevETIRAcetam 250 MG TABLET PO SCH ×2 (08:27→20:41)
[2021-09-22 08:33] VITALS: BP 132/94
[2021-09-22] MEDS ORDERED: BISACODYL 10 MG RECTAL RECTAL SUPPOSITORY PR PRN (11:00)
[2021-09-22] MEDS ORDERED: MAGNESIUM HYDROXIDE SUSPENSION 30 ML UDCUP PO PRN (11:00)
[2021-09-22] MEDS: MORPHINE SULFATE 2 MG/ML SYRINGE IVP PRN ×2 (14:43→22:17)
[2021-09-22 16:59] VITALS: BP 123/82
[2021-09-22 19:48] VITALS: BP 139/65
[2021-09-22] MEDS: KETOROLAC TROMETHAMINE 15 MG/ML VIAL IVP PRN (20:40)
[2021-09-22] MEDS: ZOLPIDEM TARTRATE 5 MG TABLET PO PRN (22:23)
[2021-09-23] MEDS: VANCOMYCIN HCL 1 GM in DEXTROSE 5%-WATER 250 ML IV SCH ×3 (00:20→15:40)
[2021-09-23 03:55] VITALS: BP 146/51
[2021-09-23] MEDS ORDERED: POTASSIUM CHLORIDE 20 MEQ ER TABLET PO ONE (04:15)
[2021-09-23] MEDS: ACETAMINOPHEN 325 MG TABLET PO PRN ×2 (04:15→20:46)
[2021-09-23] MEDS: PIPERACILLIN/TAZO 3.375 GM/D5W 50 ML IV SCH ×4 (05:26→23:58)
[2021-09-23 06:32] LABS: BASOPHILS % (AUTO) 0.7 % (0.0-2.0); EOSINOPHILS % (AUTO) 3.7 % (1.0-6.0); HEMATOCRIT 34.3 % (36-46); HEMOGLOBIN 11.6 g/dL (12.0-16.0); LYMPHOCYTES # (AUTO) 2.3 K/uL (1.0-4.8); LYMPHOCYTES % (AUTO) 18.3 % (22.0-44.0); MEAN CORPUSCULAR HEMOGLOBIN 29.5 pg (26.0-34.0); MEAN CORPUSCULAR VOLUME 87 fL (80-100); MONOCYTES # (AUTO) 0.9 K/uL (0.1-1.0); MONOCYTES % (AUTO) 6.9 % (2.0-9.0); NEUTROPHILS # (AUTO) 8.9 K/uL (1.8-7.7); NEUTROPHILS % (AUTO) 70.4 % (40.0-70.0); PLATELET COUNT (AUTO) 279 K/uL (150-450); RED BLOOD CELL COUNT(AUTO) 3.95 MIL/uL (4.00-5.20)
[2021-09-23 06:46] LABS: ANION GAP 7 mmol/L (8-16); CALCIUM, TOTAL 8.7 mg/dL (8.8-10.5); CARBON DIOXIDE 29 mmol/L (22-29); CHLORIDE 102 mmol/L (98-107); CREATININE 0.77 mg/dL (0.60-1.30); GLUCOSE,RANDOM 112 mg/dL (70-110); POTASSIUM 3.8 mmol/L (3.5-5.1); SODIUM SERUM 138 mmol/L (136-145); UREA NITROGEN, BLOOD 6 mg/dL (7-18)
[2021-09-23 06:48] LABS: GLOMERULAR FILTR. RATE CALC > 60 mL/min (>60)
[2021-09-23 07:55] VITALS: BP 140/58
[2021-09-23] MEDS: SERTRALINE HCL 100 MG TABLET PO SCH (08:26)
[2021-09-23] MEDS: BusPIRone HCL 10 MG TABLET PO SCH ×3 (08:28→20:46)
[2021-09-23] MEDS: DOCUSATE SODIUM 100 MG CAPSULE PO SCH ×2 (08:28→21:00)
[2021-09-23] MEDS: LevETIRAcetam 250 MG TABLET PO SCH ×2 (08:28→20:46)
[2021-09-23] MEDS: FAMOTIDINE 20 MG TABLET PO SCH (08:28)
[2021-09-23] MEDS: MORPHINE SULFATE 2 MG/ML SYRINGE IVP PRN ×3 (08:32→21:15)
[2021-09-23] MEDS: KETOROLAC TROMETHAMINE 15 MG/ML VIAL IVP PRN (10:35)
[2021-09-23 14:19] LABS: COVID AG,FIA SOURCE NASOPHARYNGEAL
[2021-09-23] MEDS: AZITHROMYCIN 500 MG TABLET PO SCH (14:28)
[2021-09-23 16:51] LABS: C-REACTIVE PROTEIN QUANT 2.9 mg/dL (0.00-0.30)
[2021-09-23 20:05] VITALS: BP 127/65
[2021-09-23] MEDS: ZOLPIDEM TARTRATE 5 MG TABLET PO PRN (21:15)
[2021-09-24] MEDS: VANCOMYCIN HCL 1 GM in DEXTROSE 5%-WATER 250 ML IV SCH ×2 (00:41→08:34)
[2021-09-24 05:01] VITALS: BP 125/68
[2021-09-24] MEDS: PIPERACILLIN/TAZO 3.375 GM/D5W 50 ML IV SCH ×2 (05:48→13:01)
[2021-09-24] MEDS: MORPHINE SULFATE 2 MG/ML SYRINGE IVP PRN ×3 (06:00→20:31)
[2021-09-24 06:10] LABS: ANION GAP 8 mmol/L (8-16); CARBON DIOXIDE 31 mmol/L (22-29); CHLORIDE 103 mmol/L (98-107); CREATININE 0.66 mg/dL (0.60-1.30); GLUCOSE,RANDOM 111 mg/dL (70-110); POTASSIUM 3.9 mmol/L (3.5-5.1); SODIUM SERUM 142 mmol/L (136-145); UREA NITROGEN, BLOOD 7 mg/dL (7-18); VANCOMYCIN,RANDOM 30.1 mcg/mL (25.0-50.0)
[2021-09-24 06:11] LABS: GLOMERULAR FILTR. RATE CALC > 60 mL/min (>60)
[2021-09-24 07:45] VITALS: BP 123/67
[2021-09-24] MEDS: BusPIRone HCL 10 MG TABLET PO SCH ×3 (08:36→20:30)
[2021-09-24] MEDS: FAMOTIDINE 20 MG TABLET PO SCH (08:37)
[2021-09-24] MEDS: AZITHROMYCIN 500 MG TABLET PO SCH (08:37)
[2021-09-24] MEDS: DOCUSATE SODIUM 100 MG CAPSULE PO SCH ×2 (08:37→20:32)
[2021-09-24] MEDS: LevETIRAcetam 250 MG TABLET PO SCH ×2 (08:37→20:30)
[2021-09-24] MEDS: SERTRALINE HCL 100 MG TABLET PO SCH (08:37)
[2021-09-24] MEDS: KETOROLAC TROMETHAMINE 15 MG/ML VIAL IVP PRN (08:46)
[2021-09-24 15:19] VITALS: BP 109/65
[2021-09-24] MEDS: CefTRIAXone SODIUM 2 GM in DEXTROSE 5%-WATER 50 ML IV SCH (17:06)
[2021-09-24] MEDS: ACETAMINOPHEN 325 MG TABLET PO PRN (17:15)
[2021-09-24] MEDS ORDERED: VANCOMYCIN HCL 1.25 GM in DEXTROSE 5%-WATER 250 ML IV SCH (20:00)
[2021-09-24] MEDS: ZOLPIDEM TARTRATE 5 MG TABLET PO PRN (20:30)
[2021-09-24 20:36] VITALS: BP 111/79
[2021-09-25 05:18] VITALS: BP 118/62
[2021-09-25 05:37] LABS: BASOPHILS % (AUTO) 0.6 % (0.0-2.0); EOSINOPHILS % (AUTO) 2.6 % (1.0-6.0); HEMATOCRIT 36.5 % (36-46); HEMOGLOBIN 12.3 g/dL (12.0-16.0); LYMPHOCYTES # (AUTO) 1.6 K/uL (1.0-4.8); LYMPHOCYTES % (AUTO) 10.2 % (22.0-44.0); MEAN CORPUSCULAR HEMOGLOBIN 29.5 pg (26.0-34.0); MEAN CORPUSCULAR HGB CONC 33.6 G/dL (31.0-37.0); MEAN CORPUSCULAR VOLUME 88 fL (80-100); MONOCYTES # (AUTO) 1.4 K/uL (0.1-1.0); MONOCYTES % (AUTO) 8.7 % (2.0-9.0); NEUTROPHILS # (AUTO) 12.4 K/uL (1.8-7.7); NEUTROPHILS % (AUTO) 77.9 % (40.0-70.0); PLATELET COUNT (AUTO) 284 K/uL (150-450); RED BLOOD CELL COUNT(AUTO) 4.16 MIL/uL (4.00-5.20); RED CELL DISTRIBUTION WIDTH 13.1 % (11.5-14.5)
[2021-09-25 06:14] LABS: ALANINE AMINOTRANSFERASE 23 U/L (12-78); ALBUMIN 2.9 g/dL (3.4-5.0); ALKALINE PHOSPHATASE 104 U/L (46-116); ANION GAP 7 mmol/L (8-16); ASPARTATE AMINOTRANSFERASE 18 U/L (15-37); BILIRUBIN,TOTAL 0.4 mg/dL (0.1-1.0); C-REACTIVE PROTEIN QUANT 5.06 mg/dL (0.00-0.30); CALCIUM, TOTAL 9.1 mg/dL (8.8-10.5); CARBON DIOXIDE 31 mmol/L (22-29); CHLORIDE 104 mmol/L (98-107); GLUCOSE,RANDOM 118 mg/dL (70-110); POTASSIUM 4.4 mmol/L (3.5-5.1); SODIUM SERUM 142 mmol/L (136-145); TOTAL PROTEIN, SERUM 7.1 g/dL (6.4-8.2); UREA NITROGEN, BLOOD 12 mg/dL (7-18)
[2021-09-25 06:27] LABS: GLOMERULAR FILTR. RATE CALC 52 mL/min (>60)
[2021-09-25] MEDS ORDERED: VANCOMYCIN HCL 1 GM in DEXTROSE 5%-WATER 250 ML IV SCH (08:00)
[2021-09-25 08:05] VITALS: BP 121/76
[2021-09-25] MEDS: FAMOTIDINE 20 MG TABLET PO SCH (08:47)
[2021-09-25] MEDS: LevETIRAcetam 250 MG TABLET PO SCH ×2 (08:47→21:17)
[2021-09-25] MEDS: SERTRALINE HCL 100 MG TABLET PO SCH (08:47)
[2021-09-25] MEDS: AZITHROMYCIN 500 MG TABLET PO SCH (08:47)
[2021-09-25] MEDS: DOCUSATE SODIUM 100 MG CAPSULE PO SCH ×2 (08:48→21:00)
[2021-09-25] MEDS: BusPIRone HCL 10 MG TABLET PO SCH ×3 (08:48→21:17)
[2021-09-25] MEDS: MORPHINE SULFATE 2 MG/ML SYRINGE IVP PRN ×3 (08:59→21:17)
[2021-09-25 15:41] VITALS: BP 109/72
[2021-09-25] MEDS: CefTRIAXone SODIUM 2 GM in DEXTROSE 5%-WATER 50 ML IV SCH (17:34)
[2021-09-25 19:56] VITALS: BP 124/77
[2021-09-25] MEDS: ONDANSETRON HCL 4 MG/2 ML VIAL IVP PRN (21:16)
[2021-09-25] MEDS: ZOLPIDEM TARTRATE 5 MG TABLET PO PRN (21:17)
[2021-09-26] MEDS: MORPHINE SULFATE 2 MG/ML SYRINGE IVP PRN ×4 (02:15→22:43)
[2021-09-26 05:55] VITALS: BP 112/60
[2021-09-26 07:24] LABS: C-REACTIVE PROTEIN QUANT 7.03 mg/dL (0.00-0.30); CALCIUM, TOTAL 9.2 mg/dL (8.8-10.5); CREATININE 1.09 mg/dL (0.60-1.30); POTASSIUM 3.8 mmol/L (3.5-5.1)
[2021-09-26] MEDS ORDERED: SODIUM CHLORIDE 0.9% 0 ML IV ONE (07:32)
[2021-09-26] MEDS: BusPIRone HCL 10 MG TABLET PO SCH ×3 (08:53→20:06)
[2021-09-26] MEDS: AZITHROMYCIN 500 MG TABLET PO SCH (08:54)
[2021-09-26] MEDS: DOCUSATE SODIUM 100 MG CAPSULE PO SCH ×2 (08:54→20:06)
[2021-09-26] MEDS: SERTRALINE HCL 100 MG TABLET PO SCH (08:54)
[2021-09-26] MEDS: FAMOTIDINE 20 MG TABLET PO SCH (08:54)
[2021-09-26] MEDS: LevETIRAcetam 250 MG TABLET PO SCH ×2 (08:54→20:06)
[2021-09-26 15:46] VITALS: BP 120/72
[2021-09-26] MEDS ORDERED: SODIUM CHLORIDE 0.9% 500 ML IV ONE (16:26)
[2021-09-26] MEDS: CefTRIAXone SODIUM 2 GM in DEXTROSE 5%-WATER 50 ML IV SCH (17:14)
[2021-09-26] MEDS: ACETAMINOPHEN 325 MG TABLET PO PRN (18:07)
[2021-09-26] MEDS: MetroNIDAZOLE 500 MG TABLET PO SCH (18:12)
[2021-09-26 20:00] VITALS: BP 122/79
[2021-09-26] MEDS: ZOLPIDEM TARTRATE 5 MG TABLET PO PRN (22:37)
[2021-09-27] MEDS: MetroNIDAZOLE 500 MG TABLET PO SCH ×3 (01:59→16:46)
[2021-09-27] MEDS: MORPHINE SULFATE 2 MG/ML SYRINGE IVP PRN (03:34)
[2021-09-27 03:43] VITALS: BP 121/63
[2021-09-27 06:28] LABS: C-REACTIVE PROTEIN QUANT 8.75 mg/dL (0.00-0.30); CALCIUM, TOTAL 9.2 mg/dL (8.8-10.5); CREATININE 0.97 mg/dL (0.60-1.30); POTASSIUM 4.3 mmol/L (3.5-5.1)
[2021-09-27 07:32] VITALS: BP 110/67
[2021-09-27] MEDS: LevETIRAcetam 250 MG TABLET PO SCH ×2 (08:50→20:50)
[2021-09-27] MEDS: SERTRALINE HCL 100 MG TABLET PO SCH (08:50)
[2021-09-27] MEDS: AZITHROMYCIN 500 MG TABLET PO SCH (08:50)
[2021-09-27] MEDS: BusPIRone HCL 10 MG TABLET PO SCH ×3 (08:50→20:49)
[2021-09-27] MEDS: DOCUSATE SODIUM 100 MG CAPSULE PO SCH ×2 (08:50→20:59)
[2021-09-27] MEDS: FAMOTIDINE 20 MG TABLET PO SCH (08:50)
[2021-09-27] MEDS: ACETAMINOPHEN 325 MG TABLET PO PRN (08:54)
[2021-09-27 10:37] LABS: BASOPHILS % (AUTO) 1.2 % (0.0-2.0); EOSINOPHILS % (AUTO) 1.9 % (1.0-6.0); HEMATOCRIT 36.9 % (36-46); HEMOGLOBIN 12.1 g/dL (12.0-16.0); LYMPHOCYTES # (AUTO) 1.4 K/uL (1.0-4.8); LYMPHOCYTES % (AUTO) 9.7 % (22.0-44.0); MEAN CORPUSCULAR HEMOGLOBIN 29.1 pg (26.0-34.0); MEAN CORPUSCULAR HGB CONC 32.9 G/dL (31.0-37.0); MEAN CORPUSCULAR VOLUME 88 fL (80-100); MONOCYTES # (AUTO) 1.4 K/uL (0.1-1.0); MONOCYTES % (AUTO) 9.4 % (2.0-9.0); NEUTROPHILS # (AUTO) 11.5 K/uL (1.8-7.7); NEUTROPHILS % (AUTO) 77.8 % (40.0-70.0); PLATELET COUNT (AUTO) 301 K/uL (150-450); RED BLOOD CELL COUNT(AUTO) 4.18 MIL/uL (4.00-5.20); RED CELL DISTRIBUTION WIDTH 13.2 % (11.5-14.5)
[2021-09-27 16:00] VITALS: BP 120/79
[2021-09-27] MEDS: CefTRIAXone SODIUM 2 GM in DEXTROSE 5%-WATER 50 ML IV SCH (16:47)
[2021-09-27] MEDS: ONDANSETRON HCL 4 MG/2 ML VIAL IVP PRN (20:51)
[2021-09-27] MEDS: ZOLPIDEM TARTRATE 5 MG TABLET PO PRN (20:51)
[2021-09-27 21:04] VITALS: BP 116/83
[2021-09-28] MEDS: MetroNIDAZOLE 500 MG TABLET PO SCH ×3 (00:28→15:47)
[2021-09-28 06:00] LABS: BASOPHILS % (AUTO) 1.1 % (0.0-2.0); EOSINOPHILS % (AUTO) 2.2 % (1.0-6.0); HEMATOCRIT 37.3 % (36-46); HEMOGLOBIN 12.5 g/dL (12.0-16.0); LYMPHOCYTES # (AUTO) 1.7 K/uL (1.0-4.8); LYMPHOCYTES % (AUTO) 14.6 % (22.0-44.0); MEAN CORPUSCULAR HEMOGLOBIN 29.6 pg (26.0-34.0); MEAN CORPUSCULAR HGB CONC 33.6 G/dL (31.0-37.0); MEAN CORPUSCULAR VOLUME 88 fL (80-100); MONOCYTES # (AUTO) 1.1 K/uL (0.1-1.0); NEUTROPHILS # (AUTO) 8.3 K/uL (1.8-7.7); NEUTROPHILS % (AUTO) 72.1 % (40.0-70.0); PLATELET COUNT (AUTO) 303 K/uL (150-450); RED BLOOD CELL COUNT(AUTO) 4.24 MIL/uL (4.00-5.20); RED CELL DISTRIBUTION WIDTH 13.1 % (11.5-14.5)
[2021-09-28 06:12] VITALS: BP 106/76
[2021-09-28 06:33] LABS: ALBUMIN 3.1 g/dL (3.4-5.0); BILIRUBIN,TOTAL 0.4 mg/dL (0.1-1.0); C-REACTIVE PROTEIN QUANT 6.96 mg/dL (0.00-0.30); CALCIUM, TOTAL 9.3 mg/dL (8.8-10.5); CREATININE 1.01 mg/dL (0.60-1.30); POTASSIUM 3.9 mmol/L (3.5-5.1); TOTAL PROTEIN, SERUM 7.8 g/dL (6.4-8.2)
[2021-09-28 07:49] VITALS: BP 100/60
[2021-09-28 07:53] LABS: ERYTHROCYTE SEDIMENTATION RATE 118 MM/HR (0-20)
[2021-09-28] MEDS: DOCUSATE SODIUM 100 MG CAPSULE PO SCH ×2 (09:00→20:32)
[2021-09-28] MEDS: FAMOTIDINE 20 MG TABLET PO SCH (09:30)
[2021-09-28] MEDS: BusPIRone HCL 10 MG TABLET PO SCH ×3 (09:30→20:13)
[2021-09-28] MEDS: AZITHROMYCIN 500 MG TABLET PO SCH (09:30)
[2021-09-28] MEDS: SERTRALINE HCL 100 MG TABLET PO SCH (09:30)
[2021-09-28] MEDS: LevETIRAcetam 250 MG TABLET PO SCH ×2 (10:23→20:13)
[2021-09-28] MEDS: ACETAMINOPHEN 325 MG TABLET PO PRN (10:28)
[2021-09-28 15:06] LABS: S PNEUMO SOURCE Urine; STREP PNEUMONIAE AG URINE Negative (Negative)
[2021-09-28 15:56] VITALS: BP 109/73
[2021-09-28 16:06] LABS: LEGIONELLA PNEUMO AG URINE Negative (Negative)
[2021-09-28] MEDS: CefTRIAXone SODIUM 2 GM in DEXTROSE 5%-WATER 50 ML IV SCH (18:09)
[2021-09-28] MEDS: ONDANSETRON HCL 4 MG/2 ML VIAL IVP PRN (18:12)
[2021-09-28] MEDS: MAG HYDROX/AL HYDROX/SIMETH ES 30 ML SUSPENSION UDCUP PO PRN (20:15)
[2021-09-28 20:16] VITALS: BP 126/71
[2021-09-28] MEDS: ZOLPIDEM TARTRATE 5 MG TABLET PO PRN (20:19)
[2021-09-29] MEDS: MetroNIDAZOLE 500 MG TABLET PO SCH ×3 (00:28→08:54)
[2021-09-29] MEDS: MAG HYDROX/AL HYDROX/SIMETH ES 30 ML SUSPENSION UDCUP PO PRN (00:28)
[2021-09-29 04:57] VITALS: BP 142/55
[2021-09-29 08:32] VITALS: BP 116/71
[2021-09-29] MEDS: BusPIRone HCL 10 MG TABLET PO SCH (08:53)
[2021-09-29] MEDS: AZITHROMYCIN 500 MG TABLET PO SCH (08:53)
[2021-09-29] MEDS: LevETIRAcetam 250 MG TABLET PO SCH (08:53)
[2021-09-29] MEDS: FAMOTIDINE 20 MG TABLET PO SCH (08:54)
[2021-09-29] MEDS: SERTRALINE HCL 100 MG TABLET PO SCH (08:54)
[2021-09-29] MEDS: DOCUSATE SODIUM 100 MG CAPSULE PO SCH ×2 (08:55→09:00)
== END 2021-09-29 12:55 | disposition home or self-care (01) | DRG 871 ==
LOC: EMS 10:49 → 6S 14:41 → 6N 09-23 14:13
PROVIDERS: ADMIT Internal Medicine; ATTEND Internal Medicine
PROC: 05HY33Z Insertion of Infusion Device into Upper Vein, Percutaneous Approach (ICD-10-PCS; principal; 2021-09-27)
DX: A41.9 Sepsis, unspecified organism (principal); J18.9 Pneumonia, unspecified organism; E44.0 Moderate protein-calorie malnutrition; Z68.41 Body mass index [BMI] 40.0-44.9, adult; D17.9 Benign lipomatous neoplasm, unspecified; K57.90 Diverticulosis of intestine, part unspecified, without perforation or abscess without bleeding; E66.01 Morbid (severe) obesity due to excess calories; E78.00 Pure hypercholesterolemia, unspecified; E11.9 Type 2 diabetes mellitus without complications; D64.9 Anemia, unspecified; F31.9 Bipolar disorder, unspecified; F41.1 Generalized anxiety disorder; G40.909 Epilepsy, unspecified, not intractable, without status epilepticus; Z20.822 Contact with and (suspected) exposure to COVID-19; I10 Essential (primary) hypertension; E87.6 Hypokalemia; K52.9 Noninfective gastroenteritis and colitis, unspecified; Z98.82 Breast implant status; Z90.710 Acquired absence of both cervix and uterus; Z90.49 Acquired absence of other specified parts of digestive tract; Z87.440 Personal history of urinary (tract) infections; Z82.5 Family history of asthma and other chronic lower respiratory diseases; Z80.7 Family history of other malignant neoplasms of lymphoid, hematopoietic and related tissues; Z28.310 Unvaccinated for COVID-19; Z88.8 Allergy status to other drugs, medicaments and biological substances
CPT/HCPCS: 36245; 36569; 71045; 71250; 74177; 76536; 76937; 80048; 80053; 80202; 81001; 82728; 83036; 83605; 83690; 83880; 84145; 84484; 85025; 85379; 85651; 86038; 86140; 86738; 87040; 87045; 87449; 87804; 87899; 93005; 93306; 99291; J0696; J1170; J1200; J1644; J1885; J2270; J2405; J2543; J2930; J3370; J7030; J7040; J7050; J7060; Q9967; 36415-L1; 36415-TC; U0003

== ENCOUNTER 2021-10-16 17:38 | Emergency (ER) | payer MEDICARE, OTHER ==
[~2021-10-16] VITALS: Ht 165.1 cm; Wt 118.2 kg
[~2021-10-16 17:38] MED LIST changes: -ASCO500 PO; +ATOR40TA28 PO; -FERR325T27 PO
[2021-10-16] MEDS ORDERED: ONDANSETRON HCL 4 MG/2 ML VIAL IVP ONE ×2 (18:00→19:00)
[2021-10-16] MEDS ORDERED: SODIUM CHLORIDE 0.9% 1,000 ML IV ONE (18:00)
[2021-10-16 18:23] LABS: EOSINOPHILS % (AUTO) 2.1 % (1.0-6.0); HEMATOCRIT 37.8 % (36-46); HEMOGLOBIN 12.7 g/dL (12.0-16.0); LYMPHOCYTES # (AUTO) 2.2 K/uL (1.0-4.8); LYMPHOCYTES % (AUTO) 24.4 % (22.0-44.0); MEAN CORPUSCULAR HEMOGLOBIN 29.5 pg (26.0-34.0); MEAN CORPUSCULAR HGB CONC 33.7 G/dL (31.0-37.0); MEAN CORPUSCULAR VOLUME 88 fL (80-100); MONOCYTES # (AUTO) 0.6 K/uL (0.1-1.0); MONOCYTES % (AUTO) 6.3 % (2.0-9.0); NEUTROPHILS % (AUTO) 66.2 % (40.0-70.0); PLATELET COUNT (AUTO) 249 K/uL (150-450); RED BLOOD CELL COUNT(AUTO) 4.32 MIL/uL (4.00-5.20); RED CELL DISTRIBUTION WIDTH 13.3 % (11.5-14.5)
[2021-10-16 18:33] LABS: ANION GAP 8 mmol/L (8-16); CALCIUM, TOTAL 8.6 mg/dL (8.8-10.5); CARBON DIOXIDE 29 mmol/L (22-29); CHLORIDE 104 mmol/L (98-107); CREATININE 0.78 mg/dL (0.60-1.30); GLOMERULAR FILTR. RATE CALC > 60 mL/min (>60); GLUCOSE,RANDOM 113 mg/dL (70-110); POTASSIUM 3.6 mmol/L (3.5-5.1); SODIUM SERUM 141 mmol/L (136-145); UREA NITROGEN, BLOOD 12 mg/dL (7-18)
[2021-10-16 18:34] LABS: COVID AG,FIA SOURCE NASAL SWAB
[2021-10-16 18:38] LABS: ALANINE AMINOTRANSFERASE 28 U/L (12-78); ALBUMIN 3.3 g/dL (3.4-5.0); ALKALINE PHOSPHATASE 109 U/L (46-116); ASPARTATE AMINOTRANSFERASE 21 U/L (15-37); BILIRUBIN,TOTAL 0.2 mg/dL (0.1-1.0); LIPASE 133 U/L (73-393); TOTAL PROTEIN, SERUM 7.5 g/dL (6.4-8.2)
[2021-10-16] MEDS ORDERED: MORPHINE SULFATE 4 MG/ML SYRINGE IVP ONE (19:00)
[2021-10-16 19:39] LABS: INFLUENZA TYPE A NEGATIVE FOR TYPE A (NEGATIVE); INFLUENZA TYPE B NEGATIVE FOR TYPE B (NEGATIVE)
[2021-10-16 19:55] LABS: APPEARANCE,URINE CLEAR (CLEAR); BILIRUBIN,URINE NEGATIVE (NEGATIVE); GLUCOSE, URINE (UA) NEGATIVE (NEGATIVE); KETONES,URINE NEGATIVE (NEGATIVE); LEUKOCYTE ESTERASE ,URINE NEGATIVE (NEGATIVE); NITRATE,URINE NEGATIVE (NEGATIVE); OCCULT BLOOD,URINE NEGATIVE (NEGATIVE); PH,URINE 6.5 (5.0-8.0); PROTEIN,URINE NEGATIVE (NEGATIVE); SPECIFIC GRAVITIY, URINE 1.017 (1.003-1.030); UROBILINOGEN,URINE <=1.0 mg/dL (<=1.0)
[2021-10-16 21:28] VITALS: BP 127/84
== END 2021-10-16 21:35 | disposition home or self-care (01) ==
LOC: EMS 17:42
DX: R10.32 Left lower quadrant pain (principal); R10.13 Epigastric pain; F32.A Depression, unspecified; E78.00 Pure hypercholesterolemia, unspecified; I10 Essential (primary) hypertension; G40.909 Epilepsy, unspecified, not intractable, without status epilepticus; M54.9 Dorsalgia, unspecified; Z86.69 Personal history of other diseases of the nervous system and sense organs; Z85.9 Personal history of malignant neoplasm, unspecified; Z90.49 Acquired absence of other specified parts of digestive tract; Z90.710 Acquired absence of both cervix and uterus; Z90.10 Acquired absence of unspecified breast and nipple; Z98.890 Other specified postprocedural states; Z88.8 Allergy status to other drugs, medicaments and biological substances; Z20.822 Contact with and (suspected) exposure to COVID-19
CPT/HCPCS: 99285; 74176; 96374; 96361; 96375; 87426; 80053; 81003; 83690; 84484; 85025; 87804; 36415; 93005; 96376; J2270; J2405; J7030

== ENCOUNTER 2022-11-05 14:40 | Emergency (ER) | payer MEDICARE, MEDICAID ==
[~2022-11-05] VITALS: Ht 160 cm; Wt 95.5 kg
[2022-11-05 14:53] VITALS: TEMP 99.1
[2022-11-05] MEDS ORDERED: BUSP10TA23 PO (15:03)
[2022-11-05] MEDS ORDERED: FERR-82 PO (15:03)
[2022-11-05] MEDS ORDERED: BUDE10.27 IH (15:03)
[2022-11-05] MEDS ORDERED: OXYC5 PO (15:03)
[2022-11-05] MEDS ORDERED: GABA-1181 PO (15:03)
[2022-11-05] MEDS ORDERED: LEVE10006 PO (15:03)
[2022-11-05] MEDS ORDERED: SERT-162 PO (15:03)
[2022-11-05] MEDS ORDERED: TRAZ150T80 PO (15:03)
[2022-11-05] MEDS ORDERED: ALEN70TA65 PO (15:03)
[2022-11-05] MEDS ORDERED: PRIM50TA3 PO (15:03)
[2022-11-05] MEDS ORDERED: METO50TA9 PO (15:03)
[2022-11-05] MEDS ORDERED: LEVE500T20 PO (15:03)
[2022-11-05 15:55] LABS: BASOPHILS % (AUTO) 0.9 % (0.0-2.0); EOSINOPHILS % (AUTO) 1.5 % (1.0-6.0); HEMATOCRIT 38.9 % (36-46); HEMOGLOBIN 12.8 g/dL (12.0-16.0); LYMPHOCYTES # (AUTO) 2.5 K/uL (1.0-4.8); LYMPHOCYTES % (AUTO) 24.9 % (22.0-44.0); MEAN CORPUSCULAR HGB CONC 32.8 G/dL (31.0-37.0); MEAN CORPUSCULAR VOLUME 88 fL (80-100); MONOCYTES # (AUTO) 0.6 K/uL (0.1-1.0); NEUTROPHILS # (AUTO) 6.8 K/uL (1.8-7.7); NEUTROPHILS % (AUTO) 66.7 % (40.0-70.0); PLATELET COUNT (AUTO) 279 K/uL (150-450); RED CELL DISTRIBUTION WIDTH 13.8 % (11.5-14.5)
[2022-11-05 16:03] LABS: ANION GAP 7 mmol/L (8-16); CALCIUM, TOTAL 9.1 mg/dL (8.8-10.5); CARBON DIOXIDE 30 mmol/L (22-29); CHLORIDE 101 mmol/L (98-107); CREATININE 0.64 mg/dL (0.60-1.30); GLOMERULAR FILTR. RATE CALC > 60 mL/min (>60); GLUCOSE,RANDOM 97 mg/dL (70-110); POTASSIUM 4.5 mmol/L (3.5-5.1); SODIUM SERUM 138 mmol/L (136-145)
[2022-11-05 16:08] LABS: ALANINE AMINOTRANSFERASE 21 U/L (12-78); ALBUMIN 3.1 g/dL (3.4-5.0); ALKALINE PHOSPHATASE 98 U/L (46-116); ASPARTATE AMINOTRANSFERASE 18 U/L (15-37); BILIRUBIN,TOTAL 0.1 mg/dL (0.1-1.0); LIPASE 56 U/L (16-77); TOTAL PROTEIN, SERUM 7.4 g/dL (6.4-8.2)
[2022-11-05 16:11] LABS: APPEARANCE,URINE CLEAR (CLEAR); BILIRUBIN,URINE NEGATIVE (NEGATIVE); GLUCOSE, URINE (UA) NEGATIVE (NEGATIVE); KETONES,URINE NEGATIVE (NEGATIVE); LEUKOCYTE ESTERASE ,URINE NEGATIVE (NEGATIVE); NITRATE,URINE NEGATIVE (NEGATIVE); OCCULT BLOOD,URINE NEGATIVE (NEGATIVE); PH,URINE 5.5 (5.0-8.0); PROTEIN,URINE TRACE mg/dL (NEGATIVE); SPECIFIC GRAVITIY, URINE 1.025 (1.003-1.030); UROBILINOGEN,URINE <=1.0 mg/dL (<=1.0)
[2022-11-05 16:11] LABS: LACTIC ACID 1.4 mmol/L (0.4-2.0)
[2022-11-05 16:18] LABS: BACTERIA,URINE None Seen /HPF (None Seen); RBC,URINE None Seen /HPF (0-2); WBC,URINE None Seen /HPF (0-5)
[2022-11-05] MEDS ORDERED: SODIUM CHLORIDE 0.9% 1,000 ML IV ONE (16:45)
[2022-11-05] MEDS ORDERED: METOCLOPRAMIDE HCL 5 MG/ML 2 ML VIAL IVP ONE (16:45)
[2022-11-05] MEDS ORDERED: FAMOTIDINE 20 MG/2 ML VIAL IVP ONE (16:45)
[2022-11-05] MEDS ORDERED: DICY20TA95 PO (18:47)
[2022-11-05] MEDS ORDERED: KETOROLAC TROMETHAMINE 30 MG/ML VIAL IVP ONE (19:00)
[2022-11-05 19:20] VITALS: BP 115/63; PULSE 80; RESP 16
== END 2022-11-05 20:07 | disposition home or self-care (01) ==
LOC: EMS 14:48
DX: R10.32 Left lower quadrant pain (principal); F32.A Depression, unspecified; E78.00 Pure hypercholesterolemia, unspecified; I10 Essential (primary) hypertension; Z90.49 Acquired absence of other specified parts of digestive tract; Z90.710 Acquired absence of both cervix and uterus; Z98.890 Other specified postprocedural states; Z91.040 Latex allergy status
CPT/HCPCS: 99285; 74176; 96374; 96375; 96361; 80053; 81001; 83605; 83690; 84484; 85025; 36415; 93005; J3490; J1885; J2765; J7030

== ENCOUNTER 2022-11-08 13:35 | Emergency (ER) | payer MEDICARE, MEDICAID ==
[~2022-11-08] VITALS: Ht 160 cm; Wt 95.0 kg
[~2022-11-08 13:35] MED LIST changes: +ALEN70TA65 PO; +BUDE10.27 IH; +DICY20TA95 PO; +FERR-82 PO; +GABA-1181 PO; +LEVE10006 PO; +LEVE500T20 PO; -LEVE750T4 PO; -METO25 PO; +METO50TA9 PO; +OXYC5 PO; +PRIM50TA3 PO
[2022-11-08 13:43] VITALS: TEMP 98.4
[2022-11-08] MEDS ORDERED: LIDOCAINE 1%/EPI 1:200,000/PF 30 ML VIAL SQ ONE (15:00)
[2022-11-08 15:59] VITALS: BP 108/76; PULSE 66; RESP 18
== END 2022-11-08 16:08 | disposition home or self-care (01) ==
LOC: EMS 13:44
DX: Z48.02 Encounter for removal of sutures (principal); F32.A Depression, unspecified; E78.00 Pure hypercholesterolemia, unspecified; I10 Essential (primary) hypertension; Z90.49 Acquired absence of other specified parts of digestive tract; Z90.710 Acquired absence of both cervix and uterus; Z98.890 Other specified postprocedural states; Z91.040 Latex allergy status
CPT/HCPCS: 99281; J3490

== ENCOUNTER 2022-12-24 19:55 | Emergency (ER) | payer MEDICARE, MEDICAID ==
[~2022-12-24] VITALS: Ht 160 cm; Wt 92.3 kg
[2022-12-24 20:31] LABS: APPEARANCE,URINE CLEAR (CLEAR); BILIRUBIN,URINE NEGATIVE (NEGATIVE); COLOR,URINE YELLOW (YELLOW); GLUCOSE, URINE (UA) NEGATIVE (NEGATIVE); KETONES,URINE NEGATIVE (NEGATIVE); LEUKOCYTE ESTERASE ,URINE LARGE (NEGATIVE); NITRATE,URINE NEGATIVE (NEGATIVE); OCCULT BLOOD,URINE NEGATIVE (NEGATIVE); PH,URINE 5.5 (5.0-8.0); PROTEIN,URINE TRACE mg/dL (NEGATIVE); SPECIFIC GRAVITIY, URINE 1.028 (1.003-1.030); UROBILINOGEN,URINE <=1.0 mg/dL (<=1.0)
[2022-12-24 20:46] LABS: BACTERIA,URINE Few /HPF (None Seen); RBC,URINE None Seen /HPF (0-2); SQUAMOUS EPITHELIAL CELL,UR Moderate /LPF (None Seen)
[2022-12-24 21:59] LABS: BASOPHILS % (AUTO) 0.6 % (0.0-2.0); EOSINOPHILS % (AUTO) 1.1 % (1.0-6.0); HEMATOCRIT 36.8 % (36-46); HEMOGLOBIN 12.2 g/dL (12.0-16.0); LYMPHOCYTES # (AUTO) 2.6 K/uL (1.0-4.8); LYMPHOCYTES % (AUTO) 23.6 % (22.0-44.0); MEAN CORPUSCULAR HEMOGLOBIN 29.6 pg (26.0-34.0); MEAN CORPUSCULAR HGB CONC 33.1 G/dL (31.0-37.0); MEAN CORPUSCULAR VOLUME 89 fL (80-100); MONOCYTES # (AUTO) 0.6 K/uL (0.1-1.0); MONOCYTES % (AUTO) 5.5 % (2.0-9.0); NEUTROPHILS # (AUTO) 7.6 K/uL (1.8-7.7); NEUTROPHILS % (AUTO) 69.2 % (40.0-70.0); PLATELET COUNT (AUTO) 247 K/uL (150-450); RED BLOOD CELL COUNT(AUTO) 4.12 MIL/uL (4.00-5.20); RED CELL DISTRIBUTION WIDTH 13.3 % (11.5-14.5)
[2022-12-24 22:05] LABS: ANION GAP 4 mmol/L (8-16); CARBON DIOXIDE 29 mmol/L (22-29); CHLORIDE 106 mmol/L (98-107); CREATININE 0.74 mg/dL (0.60-1.30); GLOMERULAR FILTR. RATE CALC > 60 mL/min (>60); GLUCOSE,RANDOM 105 mg/dL (70-110); SODIUM SERUM 139 mmol/L (136-145); UREA NITROGEN, BLOOD 15 mg/dL (7-18)
[2022-12-24 22:10] LABS: ALANINE AMINOTRANSFERASE 22 U/L (12-78); ALKALINE PHOSPHATASE 88 U/L (46-116); ASPARTATE AMINOTRANSFERASE 19 U/L (15-37); BILIRUBIN,TOTAL 0.1 mg/dL (0.1-1.0); TOTAL PROTEIN, SERUM 7.1 g/dL (6.4-8.2)
[2022-12-24 22:22] VITALS: BP 119/63; PULSE 74; RESP 16; TEMP 97.3
[2022-12-24] MEDS ORDERED: LEVOFLOXACIN 250 MG TABLET PO ONE (22:45)
[2022-12-24] MEDS ORDERED: IBUPROFEN 600 MG TABLET PO ONE (22:45)
[2022-12-24] MEDS ORDERED: CLOTRIMAZOLE 1% 45 GM VAGINAL CREAM VG ONE (22:45)
[2022-12-24] MEDS ORDERED: ValACYclovir HCL 500 MG TABLET PO ONE (22:45)
[2022-12-24] MEDS ORDERED: VALA100026 PO (23:03)
[2022-12-24] MEDS ORDERED: LEVO750T68 PO (23:03)
[2022-12-24] MEDS ORDERED: IBUP-1492 PO (23:03)
== END 2022-12-24 23:12 | disposition home or self-care (01) ==
LOC: EMS 19:56
DX: N39.0 Urinary tract infection, site not specified (principal); B37.31 Acute candidiasis of vulva and vagina; N12 Tubulo-interstitial nephritis, not specified as acute or chronic; E78.00 Pure hypercholesterolemia, unspecified; I10 Essential (primary) hypertension; G40.909 Epilepsy, unspecified, not intractable, without status epilepticus; Z85.9 Personal history of malignant neoplasm, unspecified; Z90.49 Acquired absence of other specified parts of digestive tract; Z90.710 Acquired absence of both cervix and uterus; Z88.8 Allergy status to other drugs, medicaments and biological substances
CPT/HCPCS: 80053; 81001; 85025; 87086; 87186; 99284

== ENCOUNTER 2023-01-23 20:50 | Emergency (ER) | payer MEDICARE, MEDICAID ==
[~2023-01-23] VITALS: Ht 165.1 cm; Wt 95.0 kg
[~2023-01-23 20:50] MED LIST changes: +IBUP-1492 PO; +LEVO750T68 PO; +VALA100026 PO
[2023-01-23 21:07] VITALS: TEMP 98.2
[2023-01-23 21:27] LABS: BASOPHILS % (AUTO) 1.1 % (0.0-2.0); EOSINOPHILS % (AUTO) 1.5 % (1.0-6.0); HEMATOCRIT 36.4 % (36-46); HEMOGLOBIN 12.2 g/dL (12.0-16.0); LYMPHOCYTES # (AUTO) 2.6 K/uL (1.0-4.8); LYMPHOCYTES % (AUTO) 24.6 % (22.0-44.0); MEAN CORPUSCULAR HGB CONC 33.4 G/dL (31.0-37.0); MEAN CORPUSCULAR VOLUME 90 fL (80-100); MONOCYTES # (AUTO) 0.6 K/uL (0.1-1.0); MONOCYTES % (AUTO) 5.7 % (2.0-9.0); NEUTROPHILS % (AUTO) 67.1 % (40.0-70.0); PLATELET COUNT (AUTO) 277 K/uL (150-450); RED BLOOD CELL COUNT(AUTO) 4.05 MIL/uL (4.00-5.20); RED CELL DISTRIBUTION WIDTH 13.7 % (11.5-14.5); WHITE BLOOD COUNT (AUTO) 10.5 K/uL (4.5-11.0)
[2023-01-23 21:35] LABS: ANION GAP 8 mmol/L (8-16); CALCIUM, TOTAL 8.3 mg/dL (8.8-10.5); CARBON DIOXIDE 29 mmol/L (22-29); CHLORIDE 104 mmol/L (98-107); CREATININE 0.86 mg/dL (0.60-1.30); GLOMERULAR FILTR. RATE CALC > 60 mL/min (>60); GLUCOSE,RANDOM 147 mg/dL (70-110); POTASSIUM 3.9 mmol/L (3.5-5.1); SODIUM SERUM 141 mmol/L (136-145); UREA NITROGEN, BLOOD 18 mg/dL (7-18)
[2023-01-23 21:40] LABS: ALANINE AMINOTRANSFERASE 27 U/L (12-78); ALKALINE PHOSPHATASE 100 U/L (46-116); ASPARTATE AMINOTRANSFERASE 18 U/L (15-37); BILIRUBIN,TOTAL 0.1 mg/dL (0.1-1.0); TOTAL PROTEIN, SERUM 7.6 g/dL (6.4-8.2)
[2023-01-23 21:42] LABS: TROPONIN I-HIGH SENSITIVITY 5 ng/L (<51)
[2023-01-23 23:28] LABS: D-DIMER 0.25 mg/L FEU (0.00-0.50); PROTHROMBIN TIME 10.5 SEC (9.4-11.6)
[2023-01-23 23:36] LABS: B-TYPE NATRIURETIC PEPTIDE 85 pg/mL (0-100); CREATINE KINASE, TOTAL ONLY 60 U/L (26-192)
[2023-01-23 23:50] LABS: TROPONIN I-HIGH SENSITIVITY 6 ng/L (<51)
[2023-01-24 00:45] VITALS: BP 101/45; PULSE 53; RESP 15
== END 2023-01-24 01:16 | disposition home or self-care (01) ==
LOC: EMS 21:17
DX: R07.89 Other chest pain (principal); M54.9 Dorsalgia, unspecified; F32.A Depression, unspecified; E78.00 Pure hypercholesterolemia, unspecified; I10 Essential (primary) hypertension; Z90.49 Acquired absence of other specified parts of digestive tract; Z90.710 Acquired absence of both cervix and uterus; Z98.890 Other specified postprocedural states; Z91.040 Latex allergy status
CPT/HCPCS: 71045; 80053; 82550; 83880; 84484; 85025; 85379; 85610; 85730; 93005; 99285; 36415-L1; 36415-TC

== ENCOUNTER 2024-04-16 18:07 | Emergency (ER) | payer MEDICARE, MEDICAID ==
[~2024-04-16] VITALS: Ht 160 cm; Wt 86.4 kg
[~2024-04-16 18:07] MED LIST changes: +LEVE-71 PO; -LEVE500T20 PO
[2024-04-16 18:09] VITALS: BP 112/67; PULSE 112; RESP 18; TEMP 98.7; O2SAT 96
[2024-04-16 19:06] LABS: COVID AG,FIA SOURCE NASAL SWAB
[2024-04-16 19:31] LABS: INFLUENZA TYPE A NEGATIVE FOR TYPE A (NEGATIVE); INFLUENZA TYPE B NEGATIVE FOR TYPE B (NEGATIVE); SARS-COV2 (COVID) ANTIGEN,FIA Negative (Negative)
[2024-04-16 19:50] LABS: ANION GAP 12 mmol/L (8-16); CALCIUM, TOTAL 9.2 mg/dL (8.8-10.5); CARBON DIOXIDE 26 mmol/L (22-29); CHLORIDE 105 mmol/L (98-107); CREATININE 0.85 mg/dL (0.60-1.30); GLOMERULAR FILTR. RATE CALC > 60 mL/min (>60); GLUCOSE,RANDOM 113 mg/dL (70-110); POTASSIUM 4.1 mmol/L (3.5-5.1); SODIUM SERUM 143 mmol/L (136-145); UREA NITROGEN, BLOOD 12 mg/dL (7-18)
[2024-04-16 19:54] LABS: BASOPHILS % (AUTO) 1.4 % (0.0-2.0); HEMATOCRIT 43.7 % (36-46); HEMOGLOBIN 14.3 g/dL (12.0-16.0); LYMPHOCYTES # (AUTO) 2.7 K/uL (1.0-4.8); LYMPHOCYTES % (AUTO) 29.6 % (22.0-44.0); MEAN CORPUSCULAR HEMOGLOBIN 29.2 pg (26.0-34.0); MEAN CORPUSCULAR HGB CONC 32.8 G/dL (31.0-37.0); MEAN CORPUSCULAR VOLUME 89 fL (80-100); MONOCYTES # (AUTO) 0.5 K/uL (0.1-1.0); MONOCYTES % (AUTO) 5.6 % (2.0-9.0); NEUTROPHILS # (AUTO) 5.7 K/uL (1.8-7.7); NEUTROPHILS % (AUTO) 62.4 % (40.0-70.0); PLATELET COUNT (AUTO) 273 K/uL (150-450); RED BLOOD CELL COUNT(AUTO) 4.91 MIL/uL (4.00-5.20); RED CELL DISTRIBUTION WIDTH 13.1 % (11.5-14.5); WHITE BLOOD COUNT (AUTO) 9.2 K/uL (4.5-11.0)
[2024-04-16] MEDS: LOPERAMIDE HCL 2 MG CAPSULE PO ONE (20:47)
[2024-04-16] MEDS: BENZONATATE 100 MG CAPSULE PO ONE (20:47)
[2024-04-16] MEDS ORDERED: BENZ-227 PO (20:58)
[2024-04-16] MEDS ORDERED: LOPE-232 PO (20:58)
== END 2024-04-16 20:53 | disposition home or self-care (01) ==
LOC: EMS 18:07
DX: A08.4 Viral intestinal infection, unspecified (principal); F32.A Depression, unspecified; E78.00 Pure hypercholesterolemia, unspecified; I10 Essential (primary) hypertension; G40.909 Epilepsy, unspecified, not intractable, without status epilepticus; Z79.51 Long term (current) use of inhaled steroids; Z79.899 Other long term (current) drug therapy; Z88.8 Allergy status to other drugs, medicaments and biological substances; Z90.49 Acquired absence of other specified parts of digestive tract; Z90.710 Acquired absence of both cervix and uterus; Z91.041 Radiographic dye allergy status; Z20.822 Contact with and (suspected) exposure to COVID-19
CPT/HCPCS: 71045; 80048; 85025; 87804; 99284; 36415-L1; 36415-TC

== ENCOUNTER 2024-07-15 11:41 | Emergency (ER) | payer MEDICARE, MEDICAID ==
[~2024-07-15] VITALS: Ht 160 cm; Wt 85.5 kg
[~2024-07-15 11:41] MED LIST changes: +BENZ-227 PO; +LEVE100023 PO; -LEVE10006 PO; -LEVO750T68 PO; +LOPE-232 PO; +OMEP-148 PO; -OMEP20 PO; -VALA100026 PO
[2024-07-15 11:58] VITALS: BP 124/70; PULSE 90; RESP 18; TEMP 97.3; O2SAT 98
[2024-07-15 12:00] LABS: APPEARANCE,URINE HAZY (CLEAR); BILIRUBIN,URINE NEGATIVE (NEGATIVE); COLOR,URINE YELLOW (YELLOW); GLUCOSE, URINE (UA) NEGATIVE (NEGATIVE); KETONES,URINE NEGATIVE (NEGATIVE); LEUKOCYTE ESTERASE ,URINE LARGE (NEGATIVE); NITRATE,URINE NEGATIVE (NEGATIVE); OCCULT BLOOD,URINE NEGATIVE (NEGATIVE); PROTEIN,URINE 30-70 mg/dL (NEGATIVE); SPECIFIC GRAVITIY, URINE 1.025 (1.003-1.030); UROBILINOGEN,URINE <=1.0 mg/dL (<=1.0)
[2024-07-15] MEDS ORDERED: PREG100C56 PO (12:03)
[2024-07-15] MEDS ORDERED: MIDO2.5T3 PO (12:03)
[2024-07-15] MEDS ORDERED: TRAZ-257 PO (12:03)
[2024-07-15] MEDS ORDERED: OXYC5TAB3 PO (12:03)
[2024-07-15] MEDS ORDERED: BUSP10TA3 PO (12:03)
[2024-07-15] MEDS ORDERED: SEMA1.7P SQ (12:03)
[2024-07-15] MEDS ORDERED: METO-391 PO (12:03)
[2024-07-15] MEDS ORDERED: BUPR1PAT21 TP (12:03)
[2024-07-15] MEDS ORDERED: HYDR50CA6 PO (12:03)
[2024-07-15] MEDS ORDERED: SERT-440 PO (12:03)
[2024-07-15] MEDS ORDERED: HYDR200T76 PO (12:03)
[2024-07-15 12:21] LABS: BACTERIA,URINE Many /HPF (None Seen); RBC,URINE None Seen /HPF (0-2); SQUAMOUS EPITHELIAL CELL,UR Moderate /LPF (None Seen); WBC,URINE 26-50 /HPF (0-5)
[2024-07-15] MEDS ORDERED: CEFU250T87 PO (12:33)
[2024-07-15] MEDS ORDERED: ONDA-104 PO (12:33)
[2024-07-15] MEDS: cefuroxime axetiL 250 MG TABLET PO ONE (13:09)
[2024-07-15] MEDS: ONDANSETRON 4 MG TABLET PO ONE (13:09)
== END 2024-07-15 13:14 | disposition home or self-care (01) ==
LOC: EMS 11:43
DX: N39.0 Urinary tract infection, site not specified (principal); I10 Essential (primary) hypertension; E78.00 Pure hypercholesterolemia, unspecified; K58.9 Irritable bowel syndrome, unspecified; F32.A Depression, unspecified; G40.909 Epilepsy, unspecified, not intractable, without status epilepticus; Z88.8 Allergy status to other drugs, medicaments and biological substances; Z91.041 Radiographic dye allergy status; Z90.710 Acquired absence of both cervix and uterus; Z90.49 Acquired absence of other specified parts of digestive tract; Z79.899 Other long term (current) drug therapy
CPT/HCPCS: 99283; 81001; 87077; 87086; Q0162; 87186